=== PATIENT | female | born 1970 | race Caucasian/White ===

== ENCOUNTER → 2016-07-09 | Outpatient (REF) | payer OTHER ==
[~2016-07-09] MED LIST: /ADVA50050 INH; /CELE20CA OR; /DULO30CA; /DULO30CA PO; /ESOM40CA; /ESOM40CA OR; /MELO7TA PO; /MOXI40TA OR; /PANT40TA PO; ABIL10TA; ABIL20TA2; ABIL5TAB OR; ASPI325T; ASPI325T OR; BACL10TA2 OR; CEPACOL PO; CLAR5CHW; CLAR5CHW OR; CLAR5CHW PO; COMBIN INH; COMBVENT; COMBVENT INH; DICY10CA2 PO; FIBERCON PO; HYDR10TA3; HYDR50TA8; HYDR50TA8 OR; HYDROCODONE/APAP PO; IBUP600T OR; IMMODIUM; IMMODIUM OR; INVAGA PO; LYRI75CA; MINI5CAP PO; NEBUMIS2; NIAS10003; NIAS500T2; NIAS500T2 OR; OXYB10TA OR; OXYB15TA OR; OXYB5TAB; OXYB5TAB4 OR; PEPC20TA2 PO; PRED10TA2 OR; PRED20TA OR; PREG100CA; PREG100CA PO; PROZ10CA OR; QUET20XRTB; QUET20XRTB OR; QUET30XR PO; RESPERIDONE PO; SIMV20TA2; SIMV20TA2 OR; SIMV20TA2 PO; SING4GRA PO; VENTAER INH; VICO5TAB; VICO5TAB OR; XOPENEX; XOPENEX OR; ZOCO5TAB; ZOCO5TAB PO; ZYRT10CA PO; [UNRECOGNIZED DRUG - OTHER]; vitamin D; vitamin D3 PO
[2016-07-10 12:09] LABS: BASO % 0.5 % (0.0-1.0); EOS # 0.2 K/mm3 (0.0-0.50); EOS % 2.5 % (0.0-3.0); LARGE UNSTAINED CELL # 0.1 K/mm3 (0.0-0.4); LARGE UNSTAINED CELL % 1.6 % (0.0-4.0); LYMPH # 2.5 K/mm3 (1.5-4.5); LYMPH % 29.8 % (24.0-44.0); MEAN CORPUSCULAR HEMOGLOBIN 34.1 pg (27.0-33.0); MEAN CORPUSCULAR HGB CONC 35.5 g/dl (32.0-36.5); MEAN CORPUSCULAR VOLUME 95.8 fl (80.0-96.0); MONO # 0.5 K/mm3 (0.0-0.8); NEUTROPHILS % 59.5 % (36.0-66.0); PLATELET COUNT, AUTOMATED 309 k/mm3 (150-450); RED CELL DISTRIBUTION WIDTH 12.3 % (11.5-14.5); WHITE BLOOD COUNT 8.4 K/mm3 (4.0-10.0)
[2016-07-10 12:17] LABS: ALBUMIN 4.1 GM/DL (3.2-5.2); ALBUMIN/GLOBULIN RATIO 1.32 (1.00-1.93); ALKALINE PHOSPHATASE 168 U/L (45-117); ALT/SGPT 14 U/L (12-78); ANION GAP 12 MEQ/L (8-16); AST/SGOT 13 U/L (15-37); BILIRUBIN,TOTAL 0.9 MG/DL (0.2-1.0); BLOOD UREA NITROGEN 12 MG/DL (7-18); CALCIUM LEVEL 10.1 MG/DL (8.5-10.1); CARBON DIOXIDE LEVEL 25 MEQ/L (21-32); CHLORIDE LEVEL 104 MEQ/L (98-107); CHOLESTEROL LEVEL 229 MG/DL (<200); CREATININE FOR GFR 0.66 MG/DL (0.55-1.02); GLOMERULAR FILTRATION RATE > 60.0 (>58); GLUCOSE, FASTING 75 MG/DL (70-105); MAGNESIUM LEVEL 1.8 MG/DL (1.8-2.4); POTASSIUM SERUM 3.1 MEQ/L (3.5-5.1); SODIUM LEVEL 141 MEQ/L (136-145); THYROXINE (T4) 10.2 UG/DL (4.5-12.0); TOTAL PROTEIN 7.2 GM/DL (6.4-8.2); TRIGLYCERIDES LEVEL 158 MG/DL (<150)
[2016-07-10 12:31] LABS: FOLATE 7.6 NG/ML (>5.4); VITAMIN B12 LEVEL 629 PG/ML (247-911)
[2016-07-10 12:41] LABS: ERYTHROCYTE SEDIMENTATION RATE 6 mm/hr (0-20)
== END ==
LOC: M SFHCCLAY 15:44
PROVIDERS: ATTEND Family Medicine
DX: E78.5 Hyperlipidemia, unspecified (principal); R63.4 Abnormal weight loss; R22.9 Localized swelling, mass and lump, unspecified; R73.01 Impaired fasting glucose

== ENCOUNTER → 2016-08-30 | Outpatient (CLI) | payer OTHER ==
--- NOTE | 2016-08-30 14:54 | REP ---
STERNUM: Two views of the sternum are performed. I see no evidence of acute fracture or dislocation. There is no evidence of intrinsic osseous pathology. IMPRESSION: Essentially negative exam of the sternum. Signed by Domingo Early MD 08/30/2016 03:57 P
--- NOTE | 2016-08-30 14:54 | REP ---
CHEST, TWO VIEWS: There is no evidence of acute infiltrate. No pleural effusion is seen. The heart is normal in size. The mediastinal silhouette is unremarkable. The visualized osseous structures are intact. There are mild degenerative changes of the spine. IMPRESSION: No acute pulmonary disease. Signed by Domingo Early MD 08/30/2016 03:57 P
== END ==
LOC: M RAD 11:09
PROVIDERS: ATTEND Family Medicine
DX: R07.89 Other chest pain (principal); J44.9 Chronic obstructive pulmonary disease, unspecified

== ENCOUNTER → 2016-10-03 | Outpatient (REF) | payer OTHER | LOC: M LAB REF 16:16 | PROVIDERS: ATTEND Physician Assistant | DX: N39.0 Urinary tract infection, site not specified (principal) ==

== ENCOUNTER → 2016-10-11 | Outpatient (CLI) | payer OTHER ==
--- NOTE | 2016-10-11 23:11 | REP ---
RIGHT HIP: Two views of the right hip are performed. There is no acute fracture or dislocation. There is mild joint space narrowing, subchondral sclerosis and spurring at the hip joint. IMPRESSION: Mild degenerative changes. No fracture or dislocation. Signed by Domingo Early MD 10/12/2016 03:22 P
--- NOTE | 2016-10-11 23:11 | REP ---
LEFT RIB SERIES: Four views of the left ribs are performed and demonstrate no fracture, dislocation or intrinsic bone disease. IMPRESSION: No evidence of left rib fracture. Signed by Domingo Early MD 10/12/2016 03:22 P
== END ==
LOC: M RAD 18:58
PROVIDERS: ATTEND Family Medicine
DX: S70.01XA Contusion of right hip, initial encounter (principal); R07.81 Pleurodynia; M16.11 Unilateral primary osteoarthritis, right hip; X58.XXXA Exposure to other specified factors, initial encounter; Y93.9 Activity, unspecified; Y92.9 Unspecified place or not applicable; Y99.8 Other external cause status

== ENCOUNTER → 2017-03-08 | Outpatient (CLI) | payer OTHER ==
--- NOTE | 2017-03-08 15:32 | REP ---
Clinical: Cough and left-sided pain . Comparison: 10/11/2016 . Technique: PA and lateral. Findings: The mediastinum and cardiac silhouette are normal. The lung cesar are clear and without acute consolidation, effusion, or pneumothorax. The skeletal structures are intact and normal. Impression: 1. No acute cardiopulmonary process. Signed by Michael Hoffman MD 03/08/2017 03:24 P
[2017-03-08 17:25] LABS: ALBUMIN/GLOBULIN RATIO 1.18 (1.00-1.93); ALKALINE PHOSPHATASE 157 U/L (45-117); ALT/SGPT 21 U/L (12-78); ANION GAP 5 MEQ/L (8-16); AST/SGOT 18 U/L (15-37); BILIRUBIN,TOTAL 0.5 MG/DL (0.2-1.0); BLOOD UREA NITROGEN 14 MG/DL (7-18); CALCIUM LEVEL 9.7 MG/DL (8.5-10.1); CARBON DIOXIDE LEVEL 31 MEQ/L (21-32); CHLORIDE LEVEL 105 MEQ/L (98-107); CHOLESTEROL LEVEL 200 MG/DL (<200); CREATININE FOR GFR 0.62 MG/DL (0.55-1.02); GLOMERULAR FILTRATION RATE > 60.0 (>58); GLUCOSE, FASTING 55 MG/DL (70-105); POTASSIUM SERUM 3.4 MEQ/L (3.5-5.1); SODIUM LEVEL 141 MEQ/L (136-145); TOTAL PROTEIN 7.4 GM/DL (6.4-8.2); TRIGLYCERIDES LEVEL 153 MG/DL (<150)
== END ==
LOC: M WUC 15:13
PROVIDERS: ATTEND Family Medicine
DX: J44.9 Chronic obstructive pulmonary disease, unspecified (principal); R73.01 Impaired fasting glucose; E78.5 Hyperlipidemia, unspecified

== ENCOUNTER → 2017-09-03 | Outpatient (REF) | payer OTHER ==
[2017-09-03 12:35] LABS: VITAMIN B12 LEVEL 460 PG/ML
[2017-09-03 12:36] LABS: FOLATE 8.4 NG/ML
[2017-09-06 00:07] LABS: LAMOTRIGINE (LAMICTAL) 3.7 ug/mL (2.0-20.0)
== END ==
LOC: M LABDRAWC 11:28
DX: Z79.899 Other long term (current) drug therapy (principal)

== ENCOUNTER → 2017-09-03 | Outpatient (REF) | payer OTHER ==
[2017-09-03 11:49] LABS: BASO # 0.1 10^3/uL (0.0-0.2); BASO % 1.5 % (0.0-1.0); EOS # 0.5 10^3/uL (0.0-0.50); EOS % 8.3 % (0.0-3.0); HEMATOCRIT 45.4 % (36.0-47.0); HEMOGLOBIN 14.8 g/dl (12.0-16.0); IMMATURE GRANULOCYTE % 0.2 % (0-3.0); LYMPH # 2.4 10^3/uL (1.5-4.5); MEAN CORPUSCULAR HEMOGLOBIN 31.5 pg (27.0-33.0); MEAN CORPUSCULAR HGB CONC 32.6 g/dl (32.0-36.5); MEAN CORPUSCULAR VOLUME 96.6 fl (80.0-96.0); MONO # 0.5 10^3/uL (0.0-0.8); MONO % 8.2 % (0.0-5.0); NEUTROPHILS # 2.1 10^3/uL (1.8-7.7); NEUTROPHILS % 38.8 % (36.0-66.0); PLATELET COUNT, AUTOMATED 336 10^3/uL (150-450); RED CELL DISTRIBUTION WIDTH 12.8 % (11.5-14.5); WHITE BLOOD COUNT 5.5 10^3/uL (4.0-10.0)
[2017-09-03 12:23] LABS: ALBUMIN 4.1 GM/DL (3.2-5.2); ALBUMIN/GLOBULIN RATIO 1.24 (1.00-1.93); ALKALINE PHOSPHATASE 197 U/L (45-117); ALT/SGPT 26 U/L (12-78); ANION GAP 7 MEQ/L (8-16); AST/SGOT 20 U/L (7-37); BILIRUBIN,TOTAL 0.6 MG/DL (0.2-1.0); BLOOD UREA NITROGEN 14 MG/DL (7-18); CALCIUM LEVEL 9.5 MG/DL (8.5-10.1); CARBON DIOXIDE LEVEL 28 MEQ/L (21-32); CHLORIDE LEVEL 107 MEQ/L (98-107); CREATININE FOR GFR 0.54 MG/DL (0.55-1.30); GLOMERULAR FILTRATION RATE > 60.0 (>58); GLUCOSE, FASTING 62 MG/DL (70-100); POTASSIUM SERUM 3.7 MEQ/L (3.5-5.1); SODIUM LEVEL 142 MEQ/L (136-145); TOTAL PROTEIN 7.4 GM/DL (6.4-8.2)
== END ==
LOC: M SFHCCLAY 09:10
DX: E78.5 Hyperlipidemia, unspecified (principal); J44.9 Chronic obstructive pulmonary disease, unspecified

== ENCOUNTER → 2017-10-01 | Outpatient (CLI) | payer OTHER | LOC: M CLY 13:42 | DX: M25.78 Osteophyte, vertebrae (principal); M50.822 Other cervical disc disorders at C5-C6 level; M50.322 Other cervical disc degeneration at C5-C6 level; M50.81 Other cervical disc disorders, high cervical region; M25.711 Osteophyte, right shoulder; M25.511 Pain in right shoulder; M54.12 Radiculopathy, cervical region | CPT/HCPCS: 72050 ==

== ENCOUNTER → 2017-10-28 | Outpatient (REF) | payer OTHER | LOC: M LAB REF 17:46 | DX: N39.0 Urinary tract infection, site not specified (principal) | CPT/HCPCS: 87186 ==

== ENCOUNTER → 2018-01-15 | Outpatient (REF) | payer OTHER ==
[2018-01-15 15:08] LABS: CHLAMYDIA DNA AMPLIFICATION NEGATIVE (NEGATIVE); GC DNA AMPLIFICATION NEGATIVE (NEGATIVE)
== END ==
LOC: M LAB REF 13:09
DX: Z11.3 Encounter for screening for infections with a predominantly sexual mode of transmission (principal)
CPT/HCPCS: 87591

== ENCOUNTER → 2018-04-28 | Outpatient (CLI) | payer OTHER | LOC: M CLY 15:22 | DX: M54.6 Pain in thoracic spine (principal) | CPT/HCPCS: 72072 ==

== ENCOUNTER 2018-05-07 10:25 | Outpatient (RCR) | payer OTHER | END 2018-05-30 | LOC: M PT 10:25 | DX: M54.6 Pain in thoracic spine (principal); M25.511 Pain in right shoulder | CPT/HCPCS: 97010 ==

== ENCOUNTER 2018-05-21 05:21 | Emergency (ER) | payer OTHER ==
[2018-05-21] MEDS ORDERED: ONDANSETRON 4MG/2ML VIAL (J2405) As Ordered (05:54)
[2018-05-21] MEDS: ONDANSETRON 4MG/2ML VIAL (J2405) IV (06:00)
[2018-05-21] MEDS: NS 1,000 ML IV (06:00)
[2018-05-21 06:23] LABS: BASO # 0.1 10^3/uL (0.0-0.2); BASO % 0.5 % (0.0-1.0); EOS # 0.2 10^3/uL (0.0-0.50); EOS % 1.6 % (0.0-3.0); HEMATOCRIT 46.9 % (36.0-47.0); IMMATURE GRANULOCYTE % 0.4 % (0-3.0); LYMPH # 1.9 10^3/uL (1.5-4.5); LYMPH % 17.1 % (24.0-44.0); MEAN CORPUSCULAR HEMOGLOBIN 31.8 pg (27.0-33.0); MEAN CORPUSCULAR HGB CONC 34.1 g/dl (32.0-36.5); MEAN CORPUSCULAR VOLUME 93.2 fl (80.0-96.0); MONO # 0.5 10^3/uL (0.0-0.8); MONO % 4.8 % (0.0-5.0); NEUTROPHILS # 8.3 10^3/uL (1.8-7.7); NEUTROPHILS % 75.6 % (36.0-66.0); PLATELET COUNT, AUTOMATED 345 10^3/uL (150-450); RED BLOOD COUNT 5.03 10^6/uL (4.00-5.40); RED CELL DISTRIBUTION WIDTH 12.5 % (11.5-14.5)
[2018-05-21] MEDS: METOCLOPRAMIDE INJ 10MG/2ML VIAL (J2765) IV (07:30)
[2018-05-21 08:08] LABS: ANION GAP 5 MEQ/L (8-16); BLOOD UREA NITROGEN 12 MG/DL (7-18); CALCIUM LEVEL 9.1 MG/DL (8.5-10.1); CARBON DIOXIDE LEVEL 28 MEQ/L (21-32); CHLORIDE LEVEL 109 MEQ/L (98-107); CREATININE FOR GFR 0.63 MG/DL (0.55-1.30); GLOMERULAR FILTRATION RATE > 60.0 (>58); GLUCOSE, FASTING 148 MG/DL (70-100); POTASSIUM SERUM 3.7 MEQ/L (3.5-5.1); SODIUM LEVEL 142 MEQ/L (136-145)
[2018-05-21] MEDS: DICYCLOMINE INJ 20MG/2ML (J0500) IM (09:15)
== END 2018-05-21 10:10 | disposition home or self-care (01) ==
LOC: M ED 05:21
DX: T62.91XA Toxic effect of unspecified noxious substance eaten as food, accidental (unintentional), initial encounter (principal); Y92.9 Unspecified place or not applicable; Y93.9 Activity, unspecified; R11.2 Nausea with vomiting, unspecified; R19.7 Diarrhea, unspecified; G43.909 Migraine, unspecified, not intractable, without status migrainosus; E78.00 Pure hypercholesterolemia, unspecified; J45.909 Unspecified asthma, uncomplicated; J44.9 Chronic obstructive pulmonary disease, unspecified; Z87.01 Personal history of pneumonia (recurrent); K21.9 Gastro-esophageal reflux disease without esophagitis; Z87.440 Personal history of urinary (tract) infections; M51.9 Unspecified thoracic, thoracolumbar and lumbosacral intervertebral disc disorder; F41.9 Anxiety disorder, unspecified; F32.9 Major depressive disorder, single episode, unspecified; Z79.899 Other long term (current) drug therapy; Z88.8 Allergy status to other drugs, medicaments and biological substances
CPT/HCPCS: J0500

== ENCOUNTER 2018-05-21 18:59 | Observation (INO) | payer OTHER ==
[2018-05-21 20:07] LABS: BASO % 0.2 % (0.0-1.0); EOS % 0.1 % (0.0-3.0); HEMATOCRIT 42.6 % (36.0-47.0); HEMOGLOBIN 14.7 g/dl (12.0-15.5); IMMATURE GRANULOCYTE % 0.9 % (0-3.0); LYMPH % 7.7 % (24.0-44.0); MEAN CORPUSCULAR HGB CONC 34.5 g/dl (32.0-36.5); MEAN CORPUSCULAR VOLUME 92.6 fl (80.0-96.0); NEUTROPHILS # 20.5 10^3/uL (1.8-7.7); NEUTROPHILS % 80.1 % (36.0-66.0); PLATELET COUNT, AUTOMATED 326 10^3/uL (150-450); RED CELL DISTRIBUTION WIDTH 12.2 % (11.5-14.5); WHITE BLOOD COUNT 25.6 10^3/uL (4.0-10.0)
[2018-05-21] MEDS: MORPHINE 4 MG/ML 1ML VIAL/SYRINGE (J2270) IV ×2 (20:17→23:01)
[2018-05-21] MEDS: NS 1,000 ML IV ×2 (20:17→23:50)
[2018-05-21] MEDS: ONDANSETRON 4MG/2ML VIAL (J2405) IV (20:17)
[2018-05-21] MEDS: GASTROGRAFIN SOLUTION 30ML PO ×2 (20:17→21:21)
[2018-05-21 20:25] LABS: CONTROL LINE HCG INT CTR LINE PRESENT; HCG, SERUM QUALITATIVE NEGATIVE (NEGATIVE)
[2018-05-21 20:34] LABS: ALBUMIN 3.8 GM/DL (3.2-5.2); ALBUMIN/GLOBULIN RATIO 1.15 (1.00-1.93); ALKALINE PHOSPHATASE 165 U/L (45-117); ALT/SGPT 27 U/L (12-78); ANION GAP 5 MEQ/L (8-16); AST/SGOT 32 U/L (7-37); BILIRUBIN,DIRECT 0.2 MG/DL (0.0-0.2); BILIRUBIN,TOTAL 0.8 MG/DL (0.2-1.0); BLOOD UREA NITROGEN 8 MG/DL (7-18); CALCIUM LEVEL 9.5 MG/DL (8.5-10.1); CARBON DIOXIDE LEVEL 28 MEQ/L (21-32); CHLORIDE LEVEL 107 MEQ/L (98-107); GLOMERULAR FILTRATION RATE > 60.0 (>58); GLUCOSE, FASTING 114 MG/DL (70-100); LIPASE 57 U/L (73-393); POTASSIUM SERUM 4.1 MEQ/L (3.5-5.1); SODIUM LEVEL 140 MEQ/L (136-145); TOTAL PROTEIN 7.1 GM/DL (6.4-8.2)
[2018-05-21 20:45] LABS: MONO # 2.8 10^3/uL (0.0-0.8); POSITIVE DIFF POS FLAG
[2018-05-21 20:50] LABS: KETONE, URINE AUTO RFX NEGATIVE (NEGATIVE); NITRITE, URINE AUTO RFX NEGATIVE (NEGATIVE); RBC, URINE AUTO RFX 1 /HPF (0-3); SPECIFIC GRAVITY UR AUTO RFX 1.009 (1.002-1.035); SQUAM EPITHELIAL CELL UR AURFX 1 /HPF (0-6); WBC, URINE AUTO RFX 2 /HPF (0-3)
[2018-05-21 20:52] LABS: LEUKOCYTE ESTERASE UR AUTO RFX TRACE (NEGATIVE)
[2018-05-21] MEDS ORDERED: ISOVUE-370 76% 100ML VIAL (Q9967) As Ordered (21:41)
[2018-05-21] MEDS: PIPERACILLIN/TAZOBACTAM SOD 4.5 GM in D5W MINI-BAG PLUS 50 ML IV (23:50)
[2018-05-22] MEDS: BUPIVACAINE HCL 0.25% 30 ML VIAL As Ordered (00:18)
[2018-05-22] MEDS ORDERED: fentaNYL 100 MCG/2 ML INJECTION (J3010) As Ordered ×3 (01:09→01:52)
[2018-05-22] MEDS ORDERED: PROPOFOL 200 MG/20 ML VIAL As Ordered (01:09)
[2018-05-22] MEDS ORDERED: ROCURONIUM BROMIDE 50 MG/5 ML VIAL As Ordered (01:09)
[2018-05-22] MEDS ORDERED: LIDOCAINE 2% INJ 100 MG/5 ML SDV (FOR ANES.) As Ordered (01:09)
[2018-05-22] MEDS ORDERED: NEOSTIGMINE 10 MG/10 ML VIAL (J2710) As Ordered (01:09)
[2018-05-22] MEDS ORDERED: MIDAZOLAM INJ 2 MG/2 ML VIAL (J2250) As Ordered (01:09)
[2018-05-22] MEDS ORDERED: dexameTHASONE 4 MG/ML 1ML VIAL (J1100) As Ordered (01:09)
[2018-05-22] MEDS ORDERED: GLYCOPYRROLATE INJ 0.2 MG/ML 2 ML VIAL As Ordered (01:09)
[2018-05-22] MEDS ORDERED: ONDANSETRON 4MG/2ML VIAL (J2405) As Ordered (01:09)
[2018-05-22] MEDS ORDERED: METOCLOPRAMIDE INJ 10MG/2ML VIAL (J2765) As Ordered (01:09)
[2018-05-22] MEDS ORDERED: KETOROLAC 60 MG/2 ML VIAL (J1885) As Ordered (01:09)
[2018-05-22] MEDS: IPRATROPIUM 0.5MG/ALBUTEROL 2.5MG INH SOL UD 3ML (DUONEB)(J7620) NEB ×4 (01:30→20:23)
[2018-05-22] MEDS ORDERED: D5W/LR 1,000 ML IV (01:44)
[2018-05-22] MEDS ORDERED: ONDANSETRON 4MG/2ML VIAL (J2405) IV ×2 (01:45→02:00)
[2018-05-22] MEDS ORDERED: ACETAMINOPHEN TAB 650MG DOSE (2X325MG) PO (01:45)
[2018-05-22] MEDS ORDERED: IPRATROPIUM 0.5MG/ALBUTEROL 2.5MG INH SOL UD 3ML (DUONEB)(J7620) NEB (01:45)
[2018-05-22] MEDS ORDERED: METOCLOPRAMIDE INJ 10MG/2ML VIAL (J2765) IV (01:45)
[2018-05-22] MEDS ORDERED: MORPHINE 4 MG/ML 1ML VIAL/SYRINGE (J2270) IV (01:45)
[2018-05-22] MEDS ORDERED: PROMETHAZINE INJ 25 MG/ML VIAL (J2550) IV (01:45)
[2018-05-22] MEDS: BUPIVACAINE/EPIN 0.25% 30 ML VIAL As Ordered (01:46)
[2018-05-22] MEDS: fentaNYL 100 MCG/2 ML INJECTION (J3010) IV ×3 (01:55→02:20)
[2018-05-22] MEDS ORDERED: PERCOCET 5MG/325MG TAB PO (02:00)
[2018-05-22] MEDS: LR 1,000 ML IV (02:00)
[2018-05-22] MEDS: NS 1,000 ML IV ×2 (03:29→10:15)
[2018-05-22] MEDS: PIPERACILLIN/TAZOBACTAM SOD 3.375 GM in D5W MINI-BAG PLUS 50 ML IV (05:35)
[2018-05-22] MEDS: KETOROLAC 30 MG/ML VIAL (J1885) IV ×3 (05:41→22:27)
[2018-05-22] MEDS: DICYCLOMINE 10 MG CAP PO ×4 (10:14→22:26)
[2018-05-22] MEDS: lamoTRIgine 100MG TAB PO (10:14)
[2018-05-22] MEDS: oxyBUTYnin *DITROPAN XL* 5 MG TABCR PO (10:14)
[2018-05-22] MEDS: PANTOPRAZOLE 40MG TAB (PROTONIX) PO (10:14)
[2018-05-22] MEDS: TOPIRAMATE (TopAMAX) 100 MG TAB PO ×2 (10:15→22:27)
[2018-05-22] MEDS: NORCO, ANEXSIA 5/325MG TABLET (HYDROcodone/ACETAMINOPHEN) PO ×2 (10:19→17:22)
[2018-05-23] MEDS: NORCO, ANEXSIA 5/325MG TABLET (HYDROcodone/ACETAMINOPHEN) PO ×4 (01:05→17:42)
[2018-05-23] MEDS: IPRATROPIUM 0.5MG/ALBUTEROL 2.5MG INH SOL UD 3ML (DUONEB)(J7620) NEB ×4 (01:18→19:57)
[2018-05-23 06:37] LABS: BASO % 0.2 % (0.0-1.0); EOS # 0.1 10^3/uL (0.0-0.50); EOS % 1.6 % (0.0-3.0); HEMATOCRIT 32.9 % (36.0-47.0); IMMATURE GRANULOCYTE % 0.3 % (0-3.0); LYMPH # 3.2 10^3/uL (1.5-4.5); LYMPH % 36.6 % (24.0-44.0); MEAN CORPUSCULAR HEMOGLOBIN 31.6 pg (27.0-33.0); MEAN CORPUSCULAR HGB CONC 33.4 g/dl (32.0-36.5); MEAN CORPUSCULAR VOLUME 94.5 fl (80.0-96.0); MONO # 0.7 10^3/uL (0.0-0.8); MONO % 7.7 % (0.0-5.0); NEUTROPHILS # 4.7 10^3/uL (1.8-7.7); NEUTROPHILS % 53.6 % (36.0-66.0); PLATELET COUNT, AUTOMATED 211 10^3/uL (150-450); RED BLOOD COUNT 3.48 10^6/uL (4.00-5.40); RED CELL DISTRIBUTION WIDTH 12.5 % (11.5-14.5); WHITE BLOOD COUNT 8.7 10^3/uL (4.0-10.0)
[2018-05-23] MEDS: TOPIRAMATE (TopAMAX) 100 MG TAB PO ×2 (09:43→21:14)
[2018-05-23] MEDS: lamoTRIgine 100MG TAB PO (09:43)
[2018-05-23] MEDS: PANTOPRAZOLE 40MG TAB (PROTONIX) PO (09:43)
[2018-05-23] MEDS: oxyBUTYnin *DITROPAN XL* 5 MG TABCR PO (09:43)
[2018-05-23] MEDS: DICYCLOMINE 10 MG CAP PO ×4 (09:44→21:14)
[2018-05-23] MEDS: GASTROGRAFIN SOLUTION 30ML PO ×2 (14:38→15:24)
[2018-05-23] MEDS: PERCOCET 5MG/325MG TAB PO (22:50)
[2018-05-24] MEDS: IPRATROPIUM 0.5MG/ALBUTEROL 2.5MG INH SOL UD 3ML (DUONEB)(J7620) NEB ×4 (03:05→20:00)
[2018-05-24] MEDS: MORPHINE 4 MG/ML 1ML VIAL/SYRINGE (J2270) IV ×3 (04:09→21:16)
[2018-05-24 06:57] LABS: BASO % 0.6 % (0.0-1.0); EOS # 0.2 10^3/uL (0.0-0.50); EOS % 3.6 % (0.0-3.0); HEMATOCRIT 32.7 % (36.0-47.0); IMMATURE GRANULOCYTE % 0.4 % (0-3.0); LYMPH # 2.9 10^3/uL (1.5-4.5); LYMPH % 43.5 % (24.0-44.0); MEAN CORPUSCULAR HEMOGLOBIN 31.9 pg (27.0-33.0); MEAN CORPUSCULAR HGB CONC 33.6 g/dl (32.0-36.5); MEAN CORPUSCULAR VOLUME 94.8 fl (80.0-96.0); MONO # 0.7 10^3/uL (0.0-0.8); MONO % 10.8 % (0.0-5.0); NEUTROPHILS # 2.7 10^3/uL (1.8-7.7); NEUTROPHILS % 41.1 % (36.0-66.0); PLATELET COUNT, AUTOMATED 227 10^3/uL (150-450); RED BLOOD COUNT 3.45 10^6/uL (4.00-5.40); RED CELL DISTRIBUTION WIDTH 12.8 % (11.5-14.5); WHITE BLOOD COUNT 6.7 10^3/uL (4.0-10.0)
[2018-05-24 07:35] LABS: ALBUMIN 2.8 GM/DL (3.2-5.2); ALBUMIN/GLOBULIN RATIO 0.85 (1.00-1.93); ALKALINE PHOSPHATASE 150 U/L (45-117); ALT/SGPT 39 U/L (12-78); ANION GAP 7 MEQ/L (8-16); AST/SGOT 38 U/L (7-37); BILIRUBIN,TOTAL 0.3 MG/DL (0.2-1.0); BLOOD UREA NITROGEN 6 MG/DL (7-18); C REACTIVE PROTEIN QUANTITATIV 6.91 MG/DL (0.00-0.30); CARBON DIOXIDE LEVEL 28 MEQ/L (21-32); CHLORIDE LEVEL 108 MEQ/L (98-107); CREATININE FOR GFR 0.52 MG/DL (0.55-1.30); GLOMERULAR FILTRATION RATE > 60.0 (>58); GLUCOSE, FASTING 93 MG/DL (70-100); POTASSIUM SERUM 2.7 MEQ/L (3.5-5.1); SODIUM LEVEL 143 MEQ/L (136-145); TOTAL PROTEIN 6.1 GM/DL (6.4-8.2)
[2018-05-24] MEDS: DICYCLOMINE 10 MG CAP PO ×4 (08:31→21:15)
[2018-05-24] MEDS: oxyBUTYnin *DITROPAN XL* 5 MG TABCR PO (08:31)
[2018-05-24] MEDS: lamoTRIgine 100MG TAB PO (08:31)
[2018-05-24] MEDS: TOPIRAMATE (TopAMAX) 100 MG TAB PO ×2 (08:31→21:15)
[2018-05-24] MEDS: PANTOPRAZOLE 40MG TAB (PROTONIX) PO (08:32)
[2018-05-24] MEDS: PERCOCET 5MG/325MG TAB PO ×2 (09:34→16:26)
[2018-05-24] MEDS: POTASSIUM CHLORIDE 10 MEQ SR TABLET PO ×2 (10:48→13:28)
[2018-05-25] MEDS: IPRATROPIUM 0.5MG/ALBUTEROL 2.5MG INH SOL UD 3ML (DUONEB)(J7620) NEB ×4 (04:37→20:23)
[2018-05-25] MEDS: PERCOCET 5MG/325MG TAB PO ×2 (06:12→23:55)
[2018-05-25 09:44] LABS: ANION GAP 5 MEQ/L (8-16); BLOOD UREA NITROGEN 3 MG/DL (7-18); CALCIUM LEVEL 9.2 MG/DL (8.5-10.1); CARBON DIOXIDE LEVEL 29 MEQ/L (21-32); CHLORIDE LEVEL 108 MEQ/L (98-107); CREATININE FOR GFR 0.55 MG/DL (0.55-1.30); GLOMERULAR FILTRATION RATE > 60.0 (>58); GLUCOSE, FASTING 80 MG/DL (70-100); POTASSIUM SERUM 3.4 MEQ/L (3.5-5.1); SODIUM LEVEL 142 MEQ/L (136-145)
[2018-05-25] MEDS: DICYCLOMINE 10 MG CAP PO ×4 (09:49→21:02)
[2018-05-25] MEDS: lamoTRIgine 100MG TAB PO (09:49)
[2018-05-25] MEDS: PANTOPRAZOLE 40MG TAB (PROTONIX) PO (09:49)
[2018-05-25] MEDS: oxyBUTYnin *DITROPAN XL* 5 MG TABCR PO (09:50)
[2018-05-25] MEDS: TOPIRAMATE (TopAMAX) 100 MG TAB PO ×2 (09:50→21:02)
[2018-05-25] MEDS: MORPHINE 4 MG/ML 1ML VIAL/SYRINGE (J2270) IV ×3 (10:33→21:29)
[2018-05-25] MEDS: NORCO, ANEXSIA 5/325MG TABLET (HYDROcodone/ACETAMINOPHEN) PO ×2 (13:27→17:55)
[2018-05-26] MEDS: IPRATROPIUM 0.5MG/ALBUTEROL 2.5MG INH SOL UD 3ML (DUONEB)(J7620) NEB ×2 (01:43→07:30)
[2018-05-26] MEDS: PERCOCET 5MG/325MG TAB PO ×3 (03:59→11:13)
[2018-05-26] MEDS: LORazepam 0.5 MG TAB PO (08:15)
[2018-05-26] MEDS: TOPIRAMATE (TopAMAX) 100 MG TAB PO (08:15)
[2018-05-26] MEDS: lamoTRIgine 100MG TAB PO (08:15)
[2018-05-26] MEDS: PANTOPRAZOLE 40MG TAB (PROTONIX) PO (08:15)
[2018-05-26] MEDS: DICYCLOMINE 10 MG CAP PO ×2 (08:15→13:21)
[2018-05-26] MEDS: oxyBUTYnin *DITROPAN XL* 5 MG TABCR PO (08:15)
[2018-05-26] MEDS: MORPHINE 4 MG/ML 1ML VIAL/SYRINGE (J2270) IV (09:10)
[2018-05-26] MEDS: NORCO, ANEXSIA 5/325MG TABLET (HYDROcodone/ACETAMINOPHEN) PO (11:20)
== END 2018-05-26 14:15 | disposition home health service (06) ==
LOC: M SDC 05-22 00:21 → M ED INP 05-22 01:44 → M ED 18:59 → M MS5PR 05-22 02:48
DX: K35.890 Other acute appendicitis without perforation or gangrene (principal); M51.36 Other intervertebral disc degeneration, lumbar region
CPT/HCPCS: 44970

== ENCOUNTER 2018-06-26 12:15 | Outpatient (RCR) | payer OTHER ==
[~2018-06-26 12:15] MED LIST changes: +ATIV1TAB10 PO; +BREO1INH; +CELE1CAP88 PO; +DICY10CA13 PO; +HYDR-3719 PO; +LAMO200T2 PO; +OXYB10TA PO; +PANT40TA3 PO; +PERCOCET PO; +TAB-TAB PO; +TOPI100T9 PO; +ZOFR4TAB14 PO
== END 2018-06-30 ==
LOC: M PT 12:15
PROVIDERS: ATTEND Family Medicine
DX: M54.6 Pain in thoracic spine (principal); M25.511 Pain in right shoulder

== ENCOUNTER → 2018-07-14 | Outpatient (CLI) | payer OTHER ==
--- NOTE | 2018-07-15 02:47 | REP ---
Clinical: Cough . Comparison: 03/08/2017 . Technique: PA and lateral. Findings: The mediastinum and cardiac silhouette are normal. The lung cesar are clear and without acute consolidation, effusion, or pneumothorax. The skeletal structures are intact and normal. Impression: 1. No acute cardiopulmonary process.
== END ==
LOC: M CLY 11:57
PROVIDERS: ATTEND Family Medicine
DX: R05 Cough (principal)

== ENCOUNTER → 2018-07-31 | Outpatient (RCR) | payer OTHER | LOC: M PT 07-08 10:02 | PROVIDERS: ATTEND Family Medicine | DX: M54.6 Pain in thoracic spine (principal); M25.511 Pain in right shoulder ==

== ENCOUNTER 2018-09-25 16:41 | Emergency (ER) | payer OTHER ==
[~2018-09-25] VITALS: Ht 154.9 cm; Wt 77.2 kg
[~2018-09-25 16:41] MED LIST changes: -/ADVA50050 INH; -/CELE20CA OR; -/DULO30CA; -/DULO30CA PO; -/ESOM40CA; -/ESOM40CA OR; -/MELO7TA PO; -/MOXI40TA OR; -/PANT40TA PO; +ADVA1AER2 INH; +AVEL1TAB2 OR; +CELE1CAP4 OR; +CYMB1CAP5; +CYMB1CAP5 PO; +MOBI4TAB PO; +NEXI1CAP3; +NEXI1CAP3 OR; +PROT1TAB2 PO; -QUET20XRTB; -QUET20XRTB OR; -QUET30XR PO; +SERO200T43; +SERO200T43 OR; +SERO300T20 PO
[2018-09-25] MEDS ORDERED: NS 500 ML IV ONE (19:00)
[2018-09-25] MEDS ORDERED: ONDANSETRON 4MG/2ML VIAL (J2405) IV ONE (19:00)
[2018-09-25] MEDS ORDERED: diphenhydrAMINE INJ 50MG/ML VIAL (J1200) IV ONE (19:00)
[2018-09-25] MEDS ORDERED: KETOROLAC 30 MG/ML VIAL (J1885) IV ONE (19:00)
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
[2018-09-25] MEDS ORDERED: NITROFURANTOIN (MACROBID) 100 MG CAP PO ONE (21:00)
[2018-09-25] MEDS ORDERED: MACR100C43 PO (21:00)
[2018-09-25 21:30] VITALS: BP 99/57
== END 2018-09-25 21:35 | disposition home or self-care (01) ==
LOC: M ED 16:41
DX: Z04.1 Encounter for examination and observation following transport accident (principal); S06.0X0A Concussion without loss of consciousness, initial encounter; V49.50XA Passenger injured in collision with unspecified motor vehicles in traffic accident, initial encounter; Y92.89 Other specified places as the place of occurrence of the external cause; M79.604 Pain in right leg; N39.0 Urinary tract infection, site not specified; J44.9 Chronic obstructive pulmonary disease, unspecified; J45.909 Unspecified asthma, uncomplicated; K21.9 Gastro-esophageal reflux disease without esophagitis; F33.9 Major depressive disorder, recurrent, unspecified; F41.9 Anxiety disorder, unspecified; F17.200 Nicotine dependence, unspecified, uncomplicated; Z79.899 Other long term (current) drug therapy; Z87.440 Personal history of urinary (tract) infections; Z88.8 Allergy status to other drugs, medicaments and biological substances
CPT/HCPCS: 70450; 73552; 73590; 81001; 87088; 87186; 96374; 96375; 99284; J1200; J1885; J2405

== ENCOUNTER → 2018-10-06 | Outpatient (REF) | payer OTHER, MEDICAID ==
[~2018-10-06] MED LIST changes: +MACR100C43 PO
[2018-10-06 13:35] LABS: BASO # 0.1 10^3/uL (0.0-0.2); BASO % 0.7 % (0.0-1.0); EOS # 0.3 10^3/uL (0.0-0.50); EOS % 4.2 % (0.0-3.0); HEMATOCRIT 43.4 % (36.0-47.0); HEMOGLOBIN 14.3 g/dl (12.0-15.5); LYMPH # 2.4 10^3/uL (1.5-4.5); LYMPH % 35.6 % (24.0-44.0); MEAN CORPUSCULAR HEMOGLOBIN 31.6 pg (27.0-33.0); MEAN CORPUSCULAR HGB CONC 32.9 g/dl (32.0-36.5); MONO # 0.5 10^3/uL (0.0-0.8); MONO % 7.9 % (0.0-5.0); NEUTROPHILS # 3.5 10^3/uL (1.8-7.7); NEUTROPHILS % 51.5 % (36.0-66.0); PLATELET COUNT, AUTOMATED 294 10^3/uL (150-450); RED BLOOD COUNT 4.52 10^6/uL (4.00-5.40); WHITE BLOOD COUNT 6.7 10^3/uL (4.0-10.0)
[2018-10-06 14:04] LABS: ERYTHROCYTE SEDIMENTATION RATE 11 mm/hr (0-20)
[2018-10-06 14:14] LABS: ALBUMIN 3.7 GM/DL (3.2-5.2); ALT/SGPT 18 U/L (12-78); BILIRUBIN,TOTAL 0.4 MG/DL (0.2-1.0); BLOOD UREA NITROGEN 15 MG/DL (7-18); CALCIUM LEVEL 9.2 MG/DL (8.5-10.1); CARBON DIOXIDE LEVEL 27 MEQ/L (21-32); CHLORIDE LEVEL 109 MEQ/L (98-107); CREATININE FOR GFR 0.61 MG/DL (0.55-1.30); GLOMERULAR FILTRATION RATE > 60.0 (>58); GLUCOSE, FASTING 66 MG/DL (70-100); POTASSIUM SERUM 3.9 MEQ/L (3.5-5.1); RHEUMATOID FACTOR QUANT < 10.0 IU/ML (<15.0); SODIUM LEVEL 142 MEQ/L (136-145); TOTAL 25(OH) VITAMIN D 23.7 NG/ML (30.0-100.0); TOTAL PROTEIN 6.8 GM/DL (6.4-8.2)
[2018-10-07 15:30] LABS: ANTINUCLEAR ANTIBODIES DIRECT Negative (Negative)
== END ==
LOC: M LABNEURO 10:55
PROVIDERS: ATTEND Psychiatry & Neurology Neurology
DX: R51 Headache (principal)

== ENCOUNTER 2019-02-27 16:32 | Emergency (ER) | payer MEDICAID, OTHER ==
[~2019-02-27] VITALS: Ht 154.9 cm; Wt 79.5 kg
[~2019-02-27 16:32] MED LIST changes: -OXYB10TA PO; +OXYB10TA2 PO
[2019-02-27] MEDS ORDERED: QUET150T2 (16:42)
[2019-02-27] MEDS ORDERED: LORA1TAB12 (16:42)
[2019-02-27] MEDS ORDERED: LORA0.5T11 (16:42)
[2019-02-27] MEDS ORDERED: HYDR-4517 (16:42)
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
[2019-02-27 18:14] VITALS: BP 106/64
--- NOTE | 2019-02-27 18:33 | REP ---
Clinical: Trauma. Technique: AP, lateral, bilateral oblique and sunrise views of the right knee. Findings: Early moderate osteoarthritic degenerative changes and osteopenia noted. Findings include cortical irregularity along the lateral femoral condyle, early osteophyte formation along the lateral tibiofemoral compartment as well as moderate osteophyte formation along the patellar contour. Medial joint space narrowing noted. No acute fracture dislocation. No effusion. Impression: Mild osteopenia and moderate arthritic degenerative changes. No acute fracture or dislocation. Electronically Signed by Michael Hoffman MD 02/27/2019 06:25 P
== END 2019-02-27 18:46 | disposition home or self-care (01) ==
LOC: M ED 16:32
DX: S06.0X0A Concussion without loss of consciousness, initial encounter (principal); S80.01XA Contusion of right knee, initial encounter; W18.39XA Other fall on same level, initial encounter; Y92.018 Other place in single-family (private) house as the place of occurrence of the external cause; M50.30 Other cervical disc degeneration, unspecified cervical region; J44.9 Chronic obstructive pulmonary disease, unspecified; K21.9 Gastro-esophageal reflux disease without esophagitis; E78.5 Hyperlipidemia, unspecified; F31.9 Bipolar disorder, unspecified; F20.9 Schizophrenia, unspecified; Z79.899 Other long term (current) drug therapy; Z88.8 Allergy status to other drugs, medicaments and biological substances; F17.210 Nicotine dependence, cigarettes, uncomplicated

== ENCOUNTER 2019-08-04 12:12 | Emergency (ER) | payer OTHER ==
[~2019-08-04] VITALS: Ht 154.9 cm; Wt 88.0 kg
[~2019-08-04 12:12] MED LIST changes: +HYDR-4517; -LAMO200T2 PO; +LAMO200T3 PO; +LORA0.5T5; +LORA1TAB4; -OXYB10TA2 PO; +OXYB10TA23 PO; +QUET150T2
[2019-08-04] MEDS ORDERED: LEXA1TAB2 PO (13:29)
[2019-08-04] MEDS ORDERED: VITA100054 PO (13:29)
[2019-08-04] MEDS ORDERED: ONDANSETRON 4MG/2ML VIAL (J2405) IV ONE (13:30)
[2019-08-04] MEDS ORDERED: NS 1,000 ML IV ONE (13:30)
[2019-08-04 14:05] LABS: BASO % 0.7 % (0.0-1.0); EOS # 0.2 10^3/uL (0.0-0.5); EOS % 2.8 % (0.0-3.0); HEMATOCRIT 47.6 % (36.0-47.0); HEMOGLOBIN 15.5 g/dl (12.0-15.5); LYMPH # 2.2 10^3/uL (1.5-5.0); LYMPH % 36.2 % (24.0-44.0); MEAN CORPUSCULAR HEMOGLOBIN 31.4 pg (27.0-33.0); MEAN CORPUSCULAR HGB CONC 32.6 g/dl (32.0-36.5); MEAN CORPUSCULAR VOLUME 96.6 fl (80.0-96.0); MONO # 0.4 10^3/uL (0.0-0.8); MONO % 7.3 % (0.0-5.0); NEUTROPHILS # 3.2 10^3/uL (1.5-8.5); NEUTROPHILS % 52.7 % (36.0-66.0); PLATELET COUNT, AUTOMATED 281 10^3/uL (150-450); RED BLOOD COUNT 4.93 10^6/uL (4.00-5.40)
[2019-08-04 14:27] LABS: INFLUENZA A AMPLIFICATION NEGATIVE (NEGATIVE); INFLUENZA B AMPLIFICATION NEGATIVE (NEGATIVE)
[2019-08-04 14:33] LABS: ALBUMIN 3.6 GM/DL (3.2-5.2); ALT/SGPT 18 U/L (12-78); BILIRUBIN,DIRECT 0.2 MG/DL (0.0-0.2); BILIRUBIN,TOTAL 0.4 MG/DL (0.2-1.0); BLOOD UREA NITROGEN 5 MG/DL (7-18); CALCIUM LEVEL 9.8 MG/DL (8.5-10.1); CARBON DIOXIDE LEVEL 31 MEQ/L (21-32); CHLORIDE LEVEL 107 MEQ/L (98-107); GLOMERULAR FILTRATION RATE > 60.0 (>51); GLUCOSE, FASTING 88 MG/DL (70-100); POTASSIUM SERUM 3.4 MEQ/L (3.5-5.1); SODIUM LEVEL 141 MEQ/L (136-145)
[2019-08-04] MEDS ORDERED: KETOROLAC 30 MG/ML VIAL (J1885) IV ONE (16:45)
[2019-08-04] MEDS ORDERED: ISOVUE-370 76% 100ML VIAL (Q9967) As Ordered ONE (16:55)
[2019-08-04 17:05] LABS: CK-MB VALUE MASS 1.6 NG/ML (<3.6); CPK CREATINE PHOSPHOKINASE 82 U/L (26-192); MB/CK RELATIVE INDEX 1.95 (< OR =4); TROPONIN I < 0.02 NG/ML (< 0.10)
--- NOTE | 2019-08-04 17:21 | REPVR ---
PROCEDURE INFORMATION: Exam: CT Abdomen And Pelvis With Contrast Exam date and time: 08/04/2019 5:01 PM Age: 49 years old Clinical indication: Abdominal pain; Generalized; Additional info: Diffuse abd pain, increased epigastric pain TECHNIQUE: Imaging protocol: Computed tomography of the abdomen and pelvis with intravenous contrast. Radiation optimization: All CT scans at this facility use at least one of these dose optimization techniques: automated exposure control; mA and/or kV adjustment per patient size (includes targeted exams where dose is matched to clinical indication); or iterative reconstruction. Contrast material: ISOVUE 370; Contrast volume: 100 ml; Contrast route: IV; COMPARISON: CT ABD/PEL W/IV ORAL CONTRAS 05/21/2018 10:20 PM FINDINGS: Lungs: Soft tissue nodule medial aspect of the right lower lobe in the infrahilar region measures 1.7 x 1.1 cm. Unclear if this represents a parenchymal mass or hilar adenopathy. Correlation with thoracic CT suggested. Liver: There is a diffuse decrease in hepatic parenchymal density, consistent with fatty infiltration. Gallbladder and bile ducts: There has been a cholecystectomy. Pancreas: Normal. No ductal dilation. Spleen: Normal. No splenomegaly. Adrenals: Normal. No mass. Kidneys and ureters: Normal. No hydronephrosis. Stomach and bowel: Unremarkable. No obstruction. No mucosal thickening. Appendix: No evidence of appendicitis. Intraperitoneal space: Unremarkable. No free air. No significant fluid collection. Vasculature: Unremarkable. No abdominal aortic aneurysm. Lymph nodes: See Lungs Finding. Bladder: Unremarkable as visualized. Reproductive: There has been a hysterectomy. Bones/joints: Moderate central spinal stenosis L2-L3, severe central spinal stenosis L3-L4 and L4-L5. Slight anterolisthesis of L4 on L5. Soft tissues: Unremarkable. IMPRESSION: 1. Soft tissue nodule medial aspect of the right lower lobe in the infrahilar region measures 1.7 x 1.1 cm. Unclear if this represents a parenchymal mass or hilar adenopathy. Correlation with thoracic CT suggested. 2. There is a diffuse decrease in hepatic parenchymal density, consistent with fatty infiltration. 3. There has been a cholecystectomy. 4. There has been a hysterectomy. 5. No acute findings. Electronically signed by: Camilo Arzate On 08/04/2019 17:20:51 PM
[2019-08-04] MEDS ORDERED: PROMETHAZINE INJ 25 MG/ML VIAL (J2550) IV ONE (18:00)
--- NOTE | 2019-08-04 18:25 | REPVR ---
PROCEDURE INFORMATION: Exam: CT Chest Without Contrast Exam date and time: 08/04/2019 5:59 PM Age: 49 years old Clinical indication: Abnormal findings; Lung mass or nodule; Not specified; Additional info: Nodule on abd/pelvic CT TECHNIQUE: Imaging protocol: Computed tomography of the chest without contrast. 3D rendering: MIP and/or 3D reconstructed images were created by the technologist. Radiation optimization: All CT scans at this facility use at least one of these dose optimization techniques: automated exposure control; mA and/or kV adjustment per patient size (includes targeted exams where dose is matched to clinical indication); or iterative reconstruction. COMPARISON: CR Chest, 2 view PA, Lat 08/04/2019 5:06 PM FINDINGS: Lungs: Unremarkable. No consolidation. No masses. Pleural space: Unremarkable. No pneumothorax. No pleural effusion. Heart: Unremarkable. No cardiomegaly. No pericardial effusion. Aorta: Unremarkable. No aortic aneurysm. Lymph nodes: Mildly prominent right infrahilar lymph node measures 1.4 x 1.1 x 0.6 cm corresponds to the finding demonstrated on prior abdominal CT. Finding likely postinflammatory. Bones/joints: Unremarkable. No acute fracture. Soft tissues: Unremarkable. IMPRESSION: 1. Mildly prominent right infrahilar lymph node measures 1.4 x 1.1 x 0.6 cm corresponds to the finding demonstrated on prior abdominal CT. Finding likely postinflammatory. 2. Otherwise unremarkable. Electronically signed by: Camilo Arzate On 08/04/2019 18:25:34 PM
--- NOTE | 2019-08-04 18:49 | REP ---
CHEST, TWO VIEWS: Two views of the chest are performed and compared to prior study of 07/14/2018. There is no acute infiltrate or pulmonary edema. There is mild cardiomegaly. The mediastinal silhouette is unremarkable and unchanged. There are mild degenerative changes of the spine. IMPRESSION: Mild cardiomegaly. No acute infiltrate. Unreviewed
[2019-08-04] MEDS ORDERED: MECLIZINE 25 MG TABLET PO ONE (20:15)
[2019-08-04 21:49] VITALS: BP 104/62
--- NOTE | 2019-08-05 10:54 | ED PDOC ---
Post-Departure Follow-Up dr tubbs faxed formal report of ct chest for fu Gianna Wild MD Aug 05, 2019 10:54
--- NOTE | 2019-08-05 10:55 | ED PDOC ---
Post-Departure Follow-Up ct abd/p also faxed to dr kaplan for fu Gianna Wild MD Aug 05, 2019 10:55
--- NOTE | 2019-08-05 14:57 | ECGEPIP ---
[facility] - ED Test Date: 2019-08-04 Pat Name: KARRI CARREON Department: Room: - Gender: Female [employer]: : 1970 Requested By: ALBERTO Duenas PA-C Order Number: [id number] Reading MD: Anahy Morales Measurements Intervals [place] Rate: 49 P: 63 MI: 163 QRS: 42 QRSD: 100 T: 18 QT: 455 QTc: 415 Interpretive Statements SINUS BRADYCARDIA NONSPECIFIC T-WAVE ABNORMALITY DECREASED RATE 05/22/18 Electronically Signed on 08-05-2019 14:57:38 EST by Anahy Morales
== END 2019-08-04 21:49 | disposition home or self-care (01) ==
LOC: M ED 12:12
DX: K76.0 Fatty (change of) liver, not elsewhere classified (principal); R00.1 Bradycardia, unspecified; E87.6 Hypokalemia; R59.9 Enlarged lymph nodes, unspecified; R10.9 Unspecified abdominal pain; R11.2 Nausea with vomiting, unspecified; R19.7 Diarrhea, unspecified; E78.5 Hyperlipidemia, unspecified; K21.9 Gastro-esophageal reflux disease without esophagitis; J44.9 Chronic obstructive pulmonary disease, unspecified; M48.00 Spinal stenosis, site unspecified; G89.29 Other chronic pain; M54.9 Dorsalgia, unspecified; F41.9 Anxiety disorder, unspecified; F32.9 Major depressive disorder, single episode, unspecified; M51.36 Other intervertebral disc degeneration, lumbar region; Z86.61 Personal history of infections of the central nervous system; R91.1 Solitary pulmonary nodule; Z79.899 Other long term (current) drug therapy; Z88.8 Allergy status to other drugs, medicaments and biological substances
CPT/HCPCS: 71046; 71250; 74177; 80048; 80076; 81001; 82550; 82553; 84443; 85025; 87086; 87502; 93005; 96361; 96374; 96375; 99284; J1885; J2405; Q9967

== ENCOUNTER → 2019-08-25 | Outpatient (CLI) | payer OTHER ==
[~2019-08-25] MED LIST changes: +LEXA1TAB2 PO; +VITA100054 PO
--- NOTE | 2019-08-25 20:12 | REP ---
SACRUM AND COCCYX, THREE VIEWS: Three views of sacrum and coccyx performed. There is no evidence of acute fracture, dislocation or intrinsic bone disease. IMPRESSION: No fracture or dislocation. Electronically Signed by Domingo Early MD 08/25/2019 08:26 P
--- NOTE | 2019-08-25 20:13 | REP ---
RIGHT ANKLE SERIES, FOUR VIEWS: Four views of the right ankle are performed. Smoothly marginated calcific density at the tip of the medial malleolus probably represents an old avulsion fracture. I see no evidence of acute fracture or dislocation. There is mild spurring of the anterior and posterior distal tibia as well as the posterior and inferior calcaneus. IMPRESSION: Suspect old avulsion fracture medial malleolus. Electronically Signed by Domingo Early MD 08/25/2019 08:26 P
--- NOTE | 2019-08-25 20:15 | REP ---
LUMBOSACRAL SPINE: Five views of the lumbosacral spine are performed. There is no acute fracture. There is normal lumbar lordosis. There is mild disc space narrowing at L4-L5 and L5-S1. There is sclerosis and spurring at the posterior facet joints of a moderate degree at L3-4, L4-5 and L5-S1. Posterior elements are intact. IMPRESSION: Degenerative changes without fracture or dislocation. Electronically Signed by Domingo Early MD 08/25/2019 08:26 P
--- NOTE | 2019-08-25 20:16 | REP ---
RIGHT LOWER LEG, AP AND LATERAL: AP and lateral views of the right lower leg are performed and demonstrate no fracture or dislocation. No intrinsic osseous pathology is seen. IMPRESSION: No fracture or dislocation. Electronically Signed by Domingo Early MD 08/25/2019 08:26 P
== END ==
LOC: M WUC 17:20
PROVIDERS: ATTEND Physician Assistant
DX: S30.0XXA Contusion of lower back and pelvis, initial encounter (principal); S80.11XA Contusion of right lower leg, initial encounter; S90.01XA Contusion of right ankle, initial encounter; M51.37 Other intervertebral disc degeneration, lumbosacral region; M77.9 Enthesopathy, unspecified; X58.XXXA Exposure to other specified factors, initial encounter; Y92.9 Unspecified place or not applicable

== ENCOUNTER → 2019-09-10 | Outpatient (REF) | payer OTHER | LOC: M SFHCWAGY 13:28 | PROVIDERS: ATTEND Nurse Practitioner Family | DX: Z12.72 Encounter for screening for malignant neoplasm of vagina (principal); A59.01 Trichomonal vulvovaginitis ==

== ENCOUNTER → 2019-12-24 | Outpatient (CLI) | payer OTHER ==
[2019-12-24 15:53] LABS: BASO % 0.5 % (0.0-1.0); EOS # 0.3 10^3/uL (0.0-0.5); EOS % 3.9 % (0.0-3.0); HEMATOCRIT 44.8 % (36.0-47.0); HEMOGLOBIN 14.8 g/dl (12.0-15.5); LYMPH # 2.4 10^3/uL (1.5-5.0); LYMPH % 32.2 % (24.0-44.0); MEAN CORPUSCULAR HEMOGLOBIN 31.7 pg (27.0-33.0); MEAN CORPUSCULAR VOLUME 95.9 fl (80.0-96.0); MONO # 0.6 10^3/uL (0.0-0.8); MONO % 8.2 % (0.0-5.0); NEUTROPHILS # 4.1 10^3/uL (1.5-8.5); NEUTROPHILS % 54.8 % (36.0-66.0); PLATELET COUNT, AUTOMATED 328 10^3/uL (150-450); RED BLOOD COUNT 4.67 10^6/uL (4.00-5.40); WHITE BLOOD COUNT 7.5 10^3/uL (4.0-10.0)
[2019-12-24 15:59] LABS: HEMOGLOBIN A1c 5.4 %
[2019-12-24 16:14] LABS: ALBUMIN 3.6 GM/DL (3.2-5.2); ALT/SGPT 18 U/L (12-78); BILIRUBIN,TOTAL 0.5 MG/DL (0.2-1.0); BLOOD UREA NITROGEN 8 MG/DL (7-18); CALCIUM LEVEL 9.6 MG/DL (8.5-10.1); CARBON DIOXIDE LEVEL 26 MEQ/L (21-32); CHLORIDE LEVEL 111 MEQ/L (98-107); CHOLESTEROL LEVEL 261 MG/DL (<200); CHOLESTEROL RISK RATIO 5.931 (<5); CREATININE FOR GFR 0.67 MG/DL (0.55-1.30); FREE T4 0.83 NG/DL (0.76-1.46); GLOMERULAR FILTRATION RATE > 60.0 (>51); GLUCOSE, FASTING 84 MG/DL (70-100); HDL CHOLESTEROL 44 MG/DL (>40); LDL CHOLESTEROL 182 MG/DL (<100); NON-HDL-C 217 MG/DL; POTASSIUM SERUM 3.7 MEQ/L (3.5-5.1); SODIUM LEVEL 141 MEQ/L (136-145); TOTAL PROTEIN 7.2 GM/DL (6.4-8.2); TRIGLYCERIDES LEVEL 174 MG/DL (<150)
== END ==
LOC: M LAB 15:03
PROVIDERS: ATTEND Nurse Practitioner Psychiatric/Mental Health
DX: F33.9 Major depressive disorder, recurrent, unspecified (principal)

== ENCOUNTER → 2020-04-19 | Outpatient (CLI) | payer OTHER ==
[~2020-04-19] MED LIST changes: +PANT40TA29 PO; -PANT40TA3 PO; -TAB-TAB PO; +TAB-TAB2 PO
[2020-04-19 20:39] LABS: APPEARANCE, URINE HAZY (CLEAR); BACTERIA, URINE AUTO 1+ (NEGATIVE); BILIRUBIN, URINE AUTO NEGATIVE (NEGATIVE); BLOOD, URINE BLOOD 1+ (NEGATIVE); COLOR, URINE YELLOW (YELLOW); GLUCOSE, URINE (UA) AUTO NEGATIVE (NEGATIVE); KETONE, URINE AUTO NEGATIVE (NEGATIVE); LEUKOCYTE ESTERASE, URINE AUTO 3+ (NEGATIVE); MUCUS, URINE SMALL (NEGATIVE); NITRITE, URINE AUTO NEGATIVE (NEGATIVE); PROTEIN, URINE AUTO NEGATIVE (NEGATIVE); RBC, URINE AUTO 7 /HPF (0-3); SPECIFIC GRAVITY URINE AUTO 1.004 (1.002-1.035); SQUAMOUS EPITHELIAL CELL UR AU 0 /HPF (0-6); UROBILINOGEN, URINE AUTO 0.2 mg/dL (0.0-2.0); WBC, URINE AUTO TNTC /HPF (0-3)
== END ==
LOC: M WUC 16:40
PROVIDERS: ATTEND Family Medicine
DX: R30.0 Dysuria (principal)

== ENCOUNTER → 2020-05-02 | Outpatient (CLI) | payer OTHER ==
--- NOTE | 2020-05-03 08:30 | REP ---
INDICATION: SPINAL STENOSIS LUMBAR REGION WITHOUT CLAUDICATION. COMPARISON: June 12, 2018.. TECHNIQUE: Sagittal and axial T1 and T2-weighted scans are acquired in the usual fashion with and without fat saturation. Sequences include spin echo, turbo spin-echo, and STIR imaging sequences. FINDINGS: Lumbar vertebral body heights are preserved. Cortical and medullary bone signal intensity are normal. The tip of the conus medullaris is normal in position and appearance at T12-L1. No extra vertebral abnormality is appreciated. Axial and sagittal images at at the L1-2 level show no abnormality. At L 2 L3, there is facet hypertrophy bilaterally, right greater than left. No neural foraminal narrowing or spinal stenosis is seen. At L3-L4, there is mild central canal stenosis due to developmentally short pedicles, minimal diffuse disc bulging, and moderate ligamentum flavum and facet hypertrophy. These findings are unchanged. Midline AP dimension of the thecal sac at L3-4 is 9 mm. No neural foraminal narrowing is seen. At L4-5, there is stable 3 mm grade 1 spondylolisthesis. There is moderate facet and ligamentum flavum hypertrophy and minimal diffuse disc bulging producing mild to moderate central canal stenosis at L4-5 unchanged from the comparison study June 12, 2018. The midline AP dimension of the thecal sac at L4-5 is 9 mm. A arthritis associated cyst is seen in the right dorsal extra-spinal soft tissues unchanged from the comparison study. There is mild bilateral neural foraminal narrowing. At L5-S1, moderate bilateral facet hypertrophy is again noted. No disc protrusion, central canal stenosis, or neural foraminal compromise. IMPRESSION: There is stable degenerative spondylosis changes. The dominant abnormality is a at L4-5 where there is moderate central canal stenosis due to disc bulging, ligamentum flavum facet hypertrophy, and developmentally short pedicles. Mild bilateral neural foraminal narrowing is felt to be present at L4-5. Findings are stable from the prior study. <Electronically signed by Magan Rodriguez > 05/03/20 [id number]
== END ==
LOC: M RAD 17:23
PROVIDERS: ATTEND Family Medicine
DX: M48.061 Spinal stenosis, lumbar region without neurogenic claudication (principal)

== ENCOUNTER → 2020-10-25 | Outpatient (REF) | payer OTHER ==
[2020-10-25 16:52] LABS: HEMOGLOBIN A1c 5.2 %
[2020-10-25 16:59] LABS: ALBUMIN 3.7 GM/DL (3.2-5.2); ALT/SGPT 22 U/L (12-78); BILIRUBIN,TOTAL 0.5 MG/DL (0.2-1.0); BLOOD UREA NITROGEN 14 MG/DL (7-18); CALCIUM LEVEL 10.1 MG/DL (8.5-10.1); CARBON DIOXIDE LEVEL 29 MEQ/L (21-32); CHLORIDE LEVEL 108 MEQ/L (98-107); CHOLESTEROL LEVEL 242 MG/DL (<200); CHOLESTEROL RISK RATIO 5.041 (<5); CREATININE FOR GFR 0.55 MG/DL (0.55-1.30); GLOMERULAR FILTRATION RATE > 60.0 (>51); GLUCOSE, FASTING 96 MG/DL (70-100); HDL CHOLESTEROL 48 MG/DL (>40); LDL CHOLESTEROL 163 MG/DL (<100); NON-HDL-C 194 MG/DL; POTASSIUM SERUM 4.5 MEQ/L (3.5-5.1); SODIUM LEVEL 142 MEQ/L (136-145); TRIGLYCERIDES LEVEL 155 MG/DL (<150)
== END ==
LOC: M SFHCCLAY 12:00
PROVIDERS: ATTEND Family Medicine
DX: E78.5 Hyperlipidemia, unspecified (principal); R73.01 Impaired fasting glucose

== ENCOUNTER → 2020-10-25 | Outpatient (CLI) | payer OTHER ==
--- NOTE | 2020-10-25 13:39 | REP ---
INDICATION: M25.551 RIGHT HIP PAIN COMPARISON: 10/11/2016. TECHNIQUE: Two views right hip performed. FINDINGS: There is no evidence of acute fracture, dislocation, or intrinsic bone disease.There is mild joint space narrowing, subchondral sclerosis and spurring. IMPRESSION: No fracture or dislocation. Mild stable arthritic changes. <Electronically signed by Domingo Early > 10/25/20 [id number]
== END ==
LOC: M CLY 11:45
PROVIDERS: ATTEND Family Medicine
DX: M25.551 Pain in right hip (principal); M16.11 Unilateral primary osteoarthritis, right hip

== ENCOUNTER → 2020-12-07 | Outpatient (REF) | payer OTHER ==
[2020-12-07 17:15] LABS: APPEARANCE, URINE CLEAR (CLEAR); BACTERIA, URINE AUTO NEGATIVE (NEGATIVE); BILIRUBIN, URINE AUTO NEGATIVE (NEGATIVE); BLOOD, URINE BLOOD NEGATIVE (NEGATIVE); COLOR, URINE YELLOW (YELLOW); GLUCOSE, URINE (UA) AUTO NEGATIVE (NEGATIVE); KETONE, URINE AUTO NEGATIVE (NEGATIVE); LEUKOCYTE ESTERASE, URINE AUTO NEGATIVE (NEGATIVE); NITRITE, URINE AUTO NEGATIVE (NEGATIVE); PROTEIN, URINE AUTO NEGATIVE (NEGATIVE); RBC, URINE AUTO 0 /HPF (0-3); SQUAMOUS EPITHELIAL CELL UR AU 0 /HPF (0-6); UROBILINOGEN, URINE AUTO 0.2 mg/dL (0.0-2.0); WBC, URINE AUTO 1 /HPF (0-3)
== END ==
LOC: M SFHCWAGY 16:46
PROVIDERS: ATTEND Specialist
DX: N39.41 Urge incontinence (principal)

== ENCOUNTER → 2020-12-23 | Outpatient (CLI) | payer OTHER ==
--- NOTE | 2020-12-23 14:22 | REPMRS ---
Patient History The patient states she has not had a clinical breast exam in over a year. Family history of unknown cancer at age 40 in father, breast cancer at age 45, colorectal cancer at age 50 or over , and endometrial cancer at age 50 or over in mother, pancreatic cancer at age 50 or over in paternal aunt. Took hormonal contraceptives for 6 months. Patient states no breast complaints today. Patient has signed MRS History Sheet. Digital Woman Screen Mammo: December 23, 2020 - Exam #: [id number] Bilateral CC and MLO view(s) were taken. Technologist: Linda Singleton, Technologist Prior study comparison: March 27, 2016, bilateral digital mammo screening bilat, performed at [facility]. May 19, 2012, bilateral bilat screen digital mammo, performed at [facility] ([facility]). May 09, 2011, bilateral bilat screen digital mammo, performed at [facility] ([facility]). FINDINGS: The breast tissue is almost entirely fat. The Volpara volumetric breast density category is: A. There has been no change in the appearance of the mammogram from the prior studies. There is no interval development of dominant mass, architectural distortion, or grouped microcalcification typical of malignancy. 3-D tomosynthesis shows no additional findings. Assessment: BI-RADS/ACR category 1 mammogram. Negative Mammogram. Recommendation Routine screening mammogram of both breasts in 1 year (for women over age 40). This patient's [facility] Lifetime Breast Cancer RIsk is estimated at 16.8 %. This mammogram was interpreted with the aid of an FDA-approved computer-aided dectection system. Electronically Signed By: Magan Rodriguez MD 12/23/20 [id number]
== END ==
LOC: M WHC 13:06
PROVIDERS: ATTEND Specialist
DX: Z12.31 Encounter for screening mammogram for malignant neoplasm of breast (principal); Z80.3 Family history of malignant neoplasm of breast; Z80.0 Family history of malignant neoplasm of digestive organs; Z80.49 Family history of malignant neoplasm of other genital organs

== ENCOUNTER → 2021-09-05 | Outpatient (REF) | payer OTHER ==
[2021-09-06 12:16] LABS: ALBUMIN 3.4 GM/DL (3.2-5.2); ALT/SGPT 26 U/L (12-78); BILIRUBIN,TOTAL 0.8 MG/DL (0.2-1.0); BLOOD UREA NITROGEN 8 MG/DL (7-18); CALCIUM LEVEL 9.4 MG/DL (8.5-10.1); CARBON DIOXIDE LEVEL 30 MEQ/L (21-32); CHLORIDE LEVEL 109 MEQ/L (98-107); CHOLESTEROL LEVEL 253 MG/DL (<200); CHOLESTEROL RISK RATIO 6.837 (<5); CREATININE FOR GFR 0.66 MG/DL (0.55-1.30); GLOMERULAR FILTRATION RATE > 60.0 (>51); GLUCOSE, FASTING 98 MG/DL (70-100); HDL CHOLESTEROL 37 MG/DL (>40); LDL CHOLESTEROL 148 MG/DL (<100); NON-HDL-C 216 MG/DL; POTASSIUM SERUM 4.4 MEQ/L (3.5-5.1); SODIUM LEVEL 141 MEQ/L (136-145); TOTAL PROTEIN 6.6 GM/DL (6.4-8.2); TRIGLYCERIDES LEVEL 339 MG/DL (<150)
[2021-09-06 12:43] LABS: HEMOGLOBIN A1c 5.6 %
== END ==
LOC: M SFHCCLAY 14:21
PROVIDERS: ATTEND Family Medicine
DX: E78.5 Hyperlipidemia, unspecified (principal); R73.01 Impaired fasting glucose

== ENCOUNTER → 2021-09-05 | Outpatient (CLI) | payer OTHER | LOC: M CLY 14:41 | PROVIDERS: ATTEND Family Medicine | DX: M54.2 Cervicalgia (principal); M47.812 Spondylosis without myelopathy or radiculopathy, cervical region ==

== ENCOUNTER → 2021-10-10 | Outpatient (CLI) | payer OTHER | LOC: M RAD 07:33 | PROVIDERS: ATTEND Family Medicine | DX: M25.551 Pain in right hip (principal); M70.61 Trochanteric bursitis, right hip ==

== ENCOUNTER → 2021-12-26 | Outpatient (CLI) | payer OTHER | LOC: M RAD 12:10 | PROVIDERS: ATTEND Family Medicine | DX: I73.9 Peripheral vascular disease, unspecified (principal) ==

== ENCOUNTER → 2022-02-02 | Outpatient (CLI) | payer OTHER ==
[~2022-02-02] MED LIST changes: +ISOVUE-370 76% 100ML VIAL As Ordered ONE
== END ==
LOC: M RAD 08:12
PROVIDERS: ATTEND Family Medicine
DX: I73.9 Peripheral vascular disease, unspecified (principal); M47.816 Spondylosis without myelopathy or radiculopathy, lumbar region; M48.061 Spinal stenosis, lumbar region without neurogenic claudication; Z90.49 Acquired absence of other specified parts of digestive tract
CPT/HCPCS: 73706; Q9967

== ENCOUNTER → 2022-03-19 | Outpatient (CLI) | payer OTHER ==
[~2022-03-19] MED LIST changes: -ISOVUE-370 76% 100ML VIAL As Ordered ONE
[2022-03-19 11:28] LABS: BLOOD UREA NITROGEN 15 MG/DL (7-18); CALCIUM LEVEL 10.1 MG/DL (8.5-10.1); CARBON DIOXIDE LEVEL 28 MEQ/L (21-32); CHLORIDE LEVEL 112 MEQ/L (98-107); CREATININE FOR GFR 0.59 MG/DL (0.55-1.30); GLOMERULAR FILTRATION RATE > 60.0 (>51); GLUCOSE, FASTING 102 MG/DL (70-100); POTASSIUM SERUM 4.4 MEQ/L (3.5-5.1); SODIUM LEVEL 144 MEQ/L (136-145)
[2022-03-19 11:29] LABS: ALBUMIN 3.5 GM/DL (3.2-5.2); ALT/SGPT 28 U/L (12-78); BILIRUBIN,TOTAL 0.6 MG/DL (0.2-1.0); TOTAL PROTEIN 6.6 GM/DL (6.4-8.2)
[2022-03-19 12:36] LABS: HEMOGLOBIN A1c 5.5 %
== END ==
LOC: M LAB 09:52
PROVIDERS: ATTEND Family Medicine
DX: R73.01 Impaired fasting glucose (principal)

== ENCOUNTER → 2022-04-13 | Outpatient (CLI) | payer OTHER | LOC: M RAD 16:31 | PROVIDERS: ATTEND Family Medicine | DX: M50.21 Other cervical disc displacement, high cervical region (principal); M47.812 Spondylosis without myelopathy or radiculopathy, cervical region; M25.78 Osteophyte, vertebrae; M48.02 Spinal stenosis, cervical region ==

== ENCOUNTER 2022-08-12 18:50 | Emergency (ER) | payer OTHER ==
[~2022-08-12] VITALS: Ht 154.9 cm; Wt 89.1 kg
[~2022-08-12 18:50] MED LIST changes: +QUET150T14; -QUET150T2
[2022-08-12] MEDS ORDERED: IPRATROPIUM 0.5MG/ALBUTEROL 2.5MG INH SOL UD 3ML (DUONEB) NEB ONE (19:10)
[2022-08-12] MEDS ORDERED: ALBUTEROL SULFATE 2.5MG/0.5ML INH NEB SOLN NEB ONE (19:10)
[2022-08-12] MEDS ORDERED: methylPREDNISolone 125MG 2ML VIAL IV ONE (19:10)
[2022-08-12] MEDS ORDERED: TOPI50TA9 (19:12)
[2022-08-12] MEDS ORDERED: LIDO1PAD (19:12)
[2022-08-12] MEDS ORDERED: GABA-1171 (19:12)
[2022-08-12] MEDS ORDERED: ALBU8.5H (19:13)
[2022-08-12 20:03] LABS: BASO % 0.4 % (0.0-1.0); EOS # 0.5 10^3/uL (0.0-0.5); EOS % 4.5 % (0.0-3.0); HEMATOCRIT 46.4 % (36.0-47.0); HEMOGLOBIN 15.4 g/dl (12.0-15.5); LYMPH # 1.7 10^3/uL (1.5-5.0); LYMPH % 15.2 % (24.0-44.0); MEAN CORPUSCULAR HEMOGLOBIN 31.4 pg (27.0-33.0); MEAN CORPUSCULAR HGB CONC 33.2 g/dl (32.0-36.5); MEAN CORPUSCULAR VOLUME 94.5 fl (80.0-96.0); MONO # 0.9 10^3/uL (0.0-0.8); MONO % 7.8 % (2.0-8.0); NEUTROPHILS # 8.2 10^3/uL (1.5-8.5); NEUTROPHILS % 71.6 % (36.0-66.0); PLATELET COUNT, AUTOMATED 288 10^3/uL (150-450); RED BLOOD COUNT 4.91 10^6/uL (4.00-5.40); WHITE BLOOD COUNT 11.4 10^3/uL (4.0-10.0)
[2022-08-12 20:16] LABS: CK-MB VALUE MASS < 1.0 NG/ML (<3.6)
[2022-08-12 20:17] LABS: ALBUMIN 3.8 G/DL (3.2-5.2); ALKALINE PHOSPHATASE 108 U/L (46-116); ALT/SGPT 15 U/L (7.0-40); AST/SGOT 8 U/L (<34); BILIRUBIN,DIRECT 0.2 MG/DL (<0.4); BILIRUBIN,TOTAL 0.7 MG/DL (0.3-1.2); BLOOD UREA NITROGEN 9 MG/DL (9-23); CALCIUM LEVEL 9.1 MG/DL (8.5-10.1); CARBON DIOXIDE LEVEL 26 MMOL/L (20-31); CHLORIDE LEVEL 110 MMOL/L (98-107); CPK CREATINE PHOSPHOKINASE 73 U/L (34-145); CREATININE FOR GFR 0.67 MG/DL (0.55-1.30); GLOMERULAR FILTRATION RATE > 60.0 (>51); GLUCOSE, FASTING 92 MG/DL (60-100); MB/CK RELATIVE INDEX 1.36 (< OR =4); POTASSIUM SERUM 3.6 MMOL/L (3.5-5.1); SODIUM LEVEL 142 MMOL/L (136-145); TOTAL PROTEIN 7.1 G/DL (5.7-8.2)
[2022-08-12 20:19] LABS: THYROID STIMULATING HORMONE 2.558 uIU/ML (0.55-4.78); THYROXINE (T4) 8.5 UG/DL (4.5-10.9)
[2022-08-12 20:36] LABS: CK-MB VALUE MASS < 1.0 NG/ML (<3.6)
[2022-08-12 20:38] LABS: CPK CREATINE PHOSPHOKINASE 82 U/L (34-145); MB/CK RELATIVE INDEX 1.21 (< OR =4)
[2022-08-12] MEDS ORDERED: COMBIVENT RESPIMAT 100-20MCG INHALER 4GM INH STA (20:50)
[2022-08-12] MEDS ORDERED: ALBUTEROL 90 MCG/ACT 8GM HFA INHALER INH ONE ×2 (20:55→21:00)
[2022-08-12 21:41] VITALS: O2SAT 94
[2022-08-12] MEDS ORDERED: PRED10TA2 PO (21:45)
[2022-08-12] MEDS ORDERED: VENTAER INH (21:45)
[2022-08-12] MEDS ORDERED: BENZ200C70 PO (21:59)
[2022-08-12 22:00] VITALS: BP 153/69
== END 2022-08-12 22:04 | disposition home or self-care (01) ==
LOC: M ED 18:50 → EDBD 18:50 → M ED 22:04
DX: J45.901 Unspecified asthma with (acute) exacerbation (principal); B34.9 Viral infection, unspecified; J44.9 Chronic obstructive pulmonary disease, unspecified; E78.5 Hyperlipidemia, unspecified; K21.9 Gastro-esophageal reflux disease without esophagitis; F33.9 Major depressive disorder, recurrent, unspecified; F41.9 Anxiety disorder, unspecified; Z88.8 Allergy status to other drugs, medicaments and biological substances; Z90.710 Acquired absence of both cervix and uterus; Z90.89 Acquired absence of other organs; Z90.49 Acquired absence of other specified parts of digestive tract; Z79.51 Long term (current) use of inhaled steroids; Z79.899 Other long term (current) drug therapy
CPT/HCPCS: 71045; 80048; 80076; 82550; 82553; 83605; 83880; 84436; 84443; 85025; 85379; 87040; 87486; 87581; 87633; 87798; 93005; 93041; 94640; 94760; 99285; J2930

== ENCOUNTER → 2022-08-14 | Outpatient (CLI) | payer OTHER ==
[~2022-08-14] MED LIST changes: +ALBU8.5H; +BENZ200C70 PO; +GABA-1171; +LIDO1PAD; +PRED10TA2 PO; +TOPI50TA9
== END ==
LOC: M CLY 14:38
PROVIDERS: ATTEND Family Medicine
DX: J45.20 Mild intermittent asthma, uncomplicated (principal); R91.8 Other nonspecific abnormal finding of lung field

== ENCOUNTER 2022-09-27 12:06 | Outpatient (RCR) | payer OTHER | END 2022-09-28 | LOC: M PT 12:06 | PROVIDERS: ATTEND Podiatrist Foot & Ankle Surgery | DX: M72.2 Plantar fascial fibromatosis (principal) ==

== ENCOUNTER → 2022-09-27 | Outpatient (CLI) | payer OTHER ==
[~2022-09-27] MED LIST changes: +TOPI-254; -TOPI50TA9
== END ==
LOC: M RAD 13:54
PROVIDERS: ATTEND Nurse Practitioner Family
DX: M25.512 Pain in left shoulder (principal)

== ENCOUNTER → 2022-10-16 | Outpatient (CLI) | payer OTHER | LOC: M WHC 11:22 | PROVIDERS: ATTEND Specialist | DX: Z12.31 Encounter for screening mammogram for malignant neoplasm of breast (principal) ==

== ENCOUNTER → 2022-11-30 | Outpatient (CLI) | payer OTHER ==
[~2022-11-30] MED LIST changes: +LORA1TAB23; -LORA1TAB4
== END ==
LOC: M PLARAD 09:44
PROVIDERS: ATTEND Family Medicine
DX: M50.221 Other cervical disc displacement at C4-C5 level (principal); M48.061 Spinal stenosis, lumbar region without neurogenic claudication; M50.223 Other cervical disc displacement at C6-C7 level; M50.222 Other cervical disc displacement at C5-C6 level; M47.816 Spondylosis without myelopathy or radiculopathy, lumbar region

== ENCOUNTER → 2022-12-17 | Outpatient (REF) | payer OTHER ==
[2022-12-17 17:54] LABS: ALBUMIN 3.6 G/DL (3.2-5.2); ALKALINE PHOSPHATASE 97 U/L (46-116); ALT/SGPT 32 U/L (7.0-40); AST/SGOT 41 U/L (<34); BILIRUBIN,TOTAL 0.7 MG/DL (0.3-1.2); BLOOD UREA NITROGEN 16 MG/DL (9-23); CALCIUM LEVEL 9.7 MG/DL (8.5-10.1); CARBON DIOXIDE LEVEL 28 MMOL/L (20-31); CHLORIDE LEVEL 108 MMOL/L (98-107); CHOLESTEROL LEVEL 215 MG/DL (<200); CHOLESTEROL RISK RATIO 4.19 (<5); CREATININE FOR GFR 0.56 MG/DL (0.55-1.30); GLOMERULAR FILTRATION RATE > 60.0 (>51); GLUCOSE, FASTING 100 MG/DL (60-100); HDL CHOLESTEROL 51.3 MG/DL (>40); LDL CHOLESTEROL 118.5 MG/DL (<100); NON-HDL-C 163.7 MG/DL; POTASSIUM SERUM 3.8 MMOL/L (3.5-5.1); SODIUM LEVEL 143 MMOL/L (136-145); TOTAL PROTEIN 6.4 G/DL (5.7-8.2); TRIGLYCERIDES LEVEL 226 MG/DL (<150)
[2022-12-17 17:57] LABS: HEMATOCRIT 45.3 % (36.0-47.0); HEMOGLOBIN 15.2 g/dl (12.0-15.5); MEAN CORPUSCULAR HEMOGLOBIN 31.5 pg (27.0-33.0); MEAN CORPUSCULAR HGB CONC 33.6 g/dl (32.0-36.5); PLATELET COUNT, AUTOMATED 283 10^3/uL (150-450); RED BLOOD COUNT 4.82 10^6/uL (4.00-5.40); WHITE BLOOD COUNT 7.3 10^3/uL (4.0-10.0)
[2022-12-17 19:27] LABS: HEMOGLOBIN A1c 5.3 % (4.0-6.0)
== END ==
LOC: M SFHCCLAY 11:19
PROVIDERS: ATTEND Family Medicine
DX: E78.5 Hyperlipidemia, unspecified (principal); R73.01 Impaired fasting glucose

== ENCOUNTER 2022-12-30 21:12 | Emergency (ER) | payer OTHER ==
[~2022-12-30] VITALS: Ht 157.5 cm; Wt 96.0 kg
[2022-12-30 21:13] VITALS: BP 124/73; TEMP 101.6; O2SAT 97
[2022-12-30] MEDS ORDERED: CICL8KIT2 EX (21:21)
[2022-12-30] MEDS ORDERED: LAMO25TA57 PO (21:21)
[2022-12-30] MEDS ORDERED: ACETAMINOPHEN TAB 650MG DOSE (2X325MG) PO ONE (21:40)
[2022-12-31] MEDS ORDERED: PENICILLIN V POTASSIUM 500 MG TAB PO ONE (00:05)
[2022-12-31] MEDS ORDERED: PENI500T PO (00:18)
== END 2022-12-31 01:22 | disposition home or self-care (01) ==
LOC: M ED 21:12
DX: J02.0 Streptococcal pharyngitis (principal); J45.909 Unspecified asthma, uncomplicated; J44.9 Chronic obstructive pulmonary disease, unspecified; K21.9 Gastro-esophageal reflux disease without esophagitis; F41.9 Anxiety disorder, unspecified; F32.A Depression, unspecified; E78.5 Hyperlipidemia, unspecified; Z79.899 Other long term (current) drug therapy; Z88.8 Allergy status to other drugs, medicaments and biological substances

== ENCOUNTER 2023-01-02 20:59 | Emergency (ER) | payer OTHER ==
[~2023-01-02] VITALS: Ht 154.9 cm; Wt 92.5 kg
[~2023-01-02 20:59] MED LIST changes: +CICL8KIT2 EX; +DICY-61 PO; -DICY10CA13 PO; +LAMO25TA57 PO; +PENI500T PO
[2023-01-03 00:05] LABS: BASO # 0.1 10^3/uL (0.0-0.2); BASO % 0.9 % (0.0-1.0); EOS # 0.3 10^3/uL (0.0-0.5); EOS % 3.5 % (0.0-3.0); HEMATOCRIT 43.8 % (36.0-47.0); HEMOGLOBIN 14.7 g/dl (12.0-15.5); LYMPH # 3.2 10^3/uL (1.5-5.0); LYMPH % 39.4 % (24.0-44.0); MEAN CORPUSCULAR HEMOGLOBIN 30.5 pg (27.0-33.0); MEAN CORPUSCULAR HGB CONC 33.6 g/dl (32.0-36.5); MEAN CORPUSCULAR VOLUME 90.9 fl (80.0-96.0); MONO % 11.6 % (2.0-8.0); NEUTROPHILS # 3.6 10^3/uL (1.5-8.5); NEUTROPHILS % 44.4 % (36.0-66.0); PLATELET COUNT, AUTOMATED 306 10^3/uL (150-450); RED BLOOD COUNT 4.82 10^6/uL (4.00-5.40); WHITE BLOOD COUNT 8.2 10^3/uL (4.0-10.0)
[2023-01-03 00:27] LABS: INR 0.93; PROTHROMBIN TIME 12.7 SECONDS (12.5-14.5)
[2023-01-03 00:29] LABS: LIPASE 28 U/L (12-53)
[2023-01-03 00:31] LABS: ALBUMIN 3.7 G/DL (3.2-5.2); ALKALINE PHOSPHATASE 140 U/L (46-116); ALT/SGPT 38 U/L (7.0-40); AST/SGOT 46 U/L (<34); BILIRUBIN,DIRECT 0.3 MG/DL (<0.4); BLOOD UREA NITROGEN 14 MG/DL (9-23); CALCIUM LEVEL 9.7 MG/DL (8.5-10.1); CARBON DIOXIDE LEVEL 28 MMOL/L (20-31); CHLORIDE LEVEL 101 MMOL/L (98-107); CK-MB VALUE MASS 4.5 NG/ML (<3.6); CREATININE FOR GFR 0.67 MG/DL (0.55-1.30); GLOMERULAR FILTRATION RATE > 60.0 (>51); GLUCOSE, FASTING 97 MG/DL (60-100); POTASSIUM SERUM 3.2 MMOL/L (3.5-5.1); SODIUM LEVEL 138 MMOL/L (136-145); TOTAL PROTEIN 7.1 G/DL (5.7-8.2)
[2023-01-03 00:40] LABS: CPK CREATINE PHOSPHOKINASE 185 U/L (34-145); MB/CK RELATIVE INDEX 2.43 (< OR =4)
[2023-01-03 03:22] LABS: MB/CK RELATIVE INDEX 2.97 (< OR =4)
[2023-01-03] MEDS ORDERED: POTASSIUM CHLORIDE 10MEQ SR TABLET PO ONE ×2 (03:55→09:00)
[2023-01-03] MEDS ORDERED: ISOVUE-370 76% 100ML VIAL As Ordered ONE (07:40)
[2023-01-03 09:12] VITALS: BP 111/50; TEMP 98; O2SAT 98
== END 2023-01-03 09:44 | disposition home or self-care (01) ==
LOC: M ED 20:59
DX: R07.9 Chest pain, unspecified (principal); R91.1 Solitary pulmonary nodule; E87.6 Hypokalemia; E78.5 Hyperlipidemia, unspecified; J45.909 Unspecified asthma, uncomplicated; K21.9 Gastro-esophageal reflux disease without esophagitis; F32.A Depression, unspecified; F41.9 Anxiety disorder, unspecified; Z88.8 Allergy status to other drugs, medicaments and biological substances; Z79.51 Long term (current) use of inhaled steroids; Z79.899 Other long term (current) drug therapy
CPT/HCPCS: 36415; 71275; 80048; 80076; 82550; 82553; 83690; 85025; 85610; 93005; 99284; Q9967

== ENCOUNTER → 2023-02-08 | Outpatient (CLI) | payer OTHER | LOC: M RAD 15:14 | PROVIDERS: ATTEND Family Medicine | DX: R07.89 Other chest pain (principal) ==

== ENCOUNTER → 2023-02-14 | Outpatient (CLI) | payer OTHER | LOC: M RAD 12:21 | PROVIDERS: ATTEND Family Medicine | DX: M25.469 Effusion, unspecified knee (principal) ==

== ENCOUNTER → 2023-03-19 | Outpatient (CLI) | payer OTHER | LOC: M RAD 12:40 | PROVIDERS: ATTEND Orthopaedic Surgery | DX: M79.89 Other specified soft tissue disorders (principal) ==

== ENCOUNTER → 2023-04-10 | Outpatient (CLI) | payer OTHER | LOC: M PLAIMG 10:54 | PROVIDERS: ATTEND Family Medicine | DX: R91.1 Solitary pulmonary nodule (principal) ==

== ENCOUNTER → 2023-06-21 | Outpatient (REF) | payer OTHER ==
[~2023-06-21] MED LIST changes: +TOPI-21; -TOPI-254
== END ==
LOC: M LAB REF 16:16
PROVIDERS: ATTEND Physician Assistant Medical
DX: B34.9 Viral infection, unspecified (principal)

== ENCOUNTER → 2023-07-02 | Outpatient (REF) | payer OTHER ==
[2023-07-02 18:30] LABS: RSV AMPLIFICATION NEGATIVE (NEGATIVE)
== END ==
LOC: M SFHCCLAY 12:23
PROVIDERS: ATTEND Physician Assistant
DX: R09.81 Nasal congestion (principal)

== ENCOUNTER → 2023-07-25 | Outpatient (REF) | payer OTHER ==
[2023-07-25 17:48] LABS: APPEARANCE, URINE CLEAR (CLEAR); BACTERIA, URINE AUTO NEGATIVE (NEGATIVE); BILIRUBIN, URINE AUTO NEGATIVE (NEGATIVE); BLOOD, URINE BLOOD NEGATIVE (NEGATIVE); COLOR, URINE YELLOW (YELLOW); GLUCOSE, URINE (UA) AUTO NEGATIVE (NEGATIVE); KETONE, URINE AUTO NEGATIVE (NEGATIVE); LEUKOCYTE ESTERASE, URINE AUTO NEGATIVE (NEGATIVE); NITRITE, URINE AUTO NEGATIVE (NEGATIVE); PROTEIN, URINE AUTO NEGATIVE (NEGATIVE); RBC, URINE AUTO 0 /HPF (0-3); SPECIFIC GRAVITY URINE AUTO 1.009 (1.002-1.035); SQUAMOUS EPITHELIAL CELL UR AU 1 /HPF (0-6); UROBILINOGEN, URINE AUTO 0.2 mg/dL (0.0-2.0); WBC, URINE AUTO 0 /HPF (0-3)
== END ==
LOC: M SMT 17:26
PROVIDERS: ATTEND Specialist
DX: N30.90 Cystitis, unspecified without hematuria (principal)

== ENCOUNTER → 2023-07-26 | Outpatient (REF) | payer OTHER | LOC: M LABSMT 13:24 | PROVIDERS: ATTEND Specialist | DX: N30.90 Cystitis, unspecified without hematuria (principal); N39.46 Mixed incontinence; Z53.9 Procedure and treatment not carried out, unspecified reason ==

== ENCOUNTER 2023-10-15 15:05 | Emergency (ER) | payer OTHER ==
[~2023-10-15] VITALS: Ht 154.9 cm; Wt 100.9 kg
[2023-10-15 16:09] LABS: BASO # 0.1 10^3/uL (0.0-0.2); BASO % 0.9 % (0.0-1.0); EOS # 0.2 10^3/uL (0.0-0.5); EOS % 4.1 % (0.0-3.0); HEMOGLOBIN 15.3 g/dl (12.0-15.5); LYMPH # 2.9 10^3/uL (1.5-5.0); LYMPH % 49.3 % (24.0-44.0); MEAN CORPUSCULAR HEMOGLOBIN 31.4 pg (27.0-33.0); MEAN CORPUSCULAR HGB CONC 33.3 g/dl (32.0-36.5); MEAN CORPUSCULAR VOLUME 94.3 fl (80.0-96.0); MONO # 0.6 10^3/uL (0.0-0.8); NEUTROPHILS % 35.2 % (36.0-66.0); PLATELET COUNT, AUTOMATED 318 10^3/uL (150-450); RED BLOOD COUNT 4.88 10^6/uL (4.00-5.40); WHITE BLOOD COUNT 5.8 10^3/uL (4.0-10.0)
[2023-10-15 16:14] LABS: CK-MB VALUE MASS 3.6 NG/ML (<3.6)
[2023-10-15 16:16] LABS: BLOOD UREA NITROGEN 12 MG/DL (9-23); CALCIUM LEVEL 10.2 MG/DL (8.5-10.1); CARBON DIOXIDE LEVEL 30 MMOL/L (20-31); CHLORIDE LEVEL 107 MMOL/L (98-107); CREATININE FOR GFR 0.63 MG/DL (0.55-1.30); GLOMERULAR FILTRATION RATE > 60.0 (>51); GLUCOSE, FASTING 100 MG/DL (60-100); SODIUM LEVEL 143 MMOL/L (136-145)
[2023-10-15 16:18] LABS: CPK CREATINE PHOSPHOKINASE 158 U/L (34-145); MB/CK RELATIVE INDEX 2.27 (< OR =4)
[2023-10-15] MEDS: NS 1,000 ML IV ONE (20:39)
[2023-10-15] MEDS: ONDANSETRON 4MG 2ML VIAL IV ONE (20:39)
[2023-10-15 22:45] VITALS: BP 142/60; TEMP 97.5; O2SAT 98
== END 2023-10-15 22:47 | disposition home or self-care (01) ==
LOC: M ED 15:05
DX: U07.1 COVID-19 (principal); J45.909 Unspecified asthma, uncomplicated; J44.9 Chronic obstructive pulmonary disease, unspecified; F41.9 Anxiety disorder, unspecified; F32.A Depression, unspecified; E78.5 Hyperlipidemia, unspecified; Z87.820 Personal history of traumatic brain injury; Z87.891 Personal history of nicotine dependence; Z79.899 Other long term (current) drug therapy; Z88.8 Allergy status to other drugs, medicaments and biological substances
CPT/HCPCS: 80048; 82550; 82553; 85025; 93005; 96361; 96374; 99284; J2405

== ENCOUNTER → 2024-02-06 | Outpatient (REF) | payer OTHER ==
[2024-02-06 18:10] LABS: HEMATOCRIT 46.8 % (36.0-47.0); HEMOGLOBIN 15.4 g/dl (12.0-15.5); MEAN CORPUSCULAR HEMOGLOBIN 31.2 pg (27.0-33.0); MEAN CORPUSCULAR HGB CONC 32.9 g/dl (32.0-36.5); MEAN CORPUSCULAR VOLUME 94.7 fl (80.0-96.0); PLATELET COUNT, AUTOMATED 273 10^3/uL (150-450); RED BLOOD COUNT 4.94 10^6/uL (4.00-5.40); WHITE BLOOD COUNT 6.7 10^3/uL (4.0-10.0)
[2024-02-06 18:17] LABS: HEMOGLOBIN A1c 5.6 % (4.0-6.0)
[2024-02-06 18:42] LABS: ALBUMIN 4.1 G/DL (3.2-5.2); ALKALINE PHOSPHATASE 99 U/L (46-116); ALT/SGPT 27 U/L (7.0-40); AST/SGOT 33 U/L (<34); BILIRUBIN,TOTAL 0.9 MG/DL (0.3-1.2); BLOOD UREA NITROGEN 10 MG/DL (9-23); CALCIUM LEVEL 10.3 MG/DL (8.5-10.1); CARBON DIOXIDE LEVEL 28 MMOL/L (20-31); CHLORIDE LEVEL 108 MMOL/L (98-107); CHOLESTEROL LEVEL 237 MG/DL (<200); CREATININE FOR GFR 0.73 MG/DL (0.55-1.30); GLOMERULAR FILTRATION RATE > 60.0 (>51); GLUCOSE, FASTING 106 MG/DL (60-100); HDL CHOLESTEROL 44.7 MG/DL (>40); LDL CHOLESTEROL 149.3 MG/DL (<100); NON-HDL-C 192.3 MG/DL; POTASSIUM SERUM 3.9 MMOL/L (3.5-5.1); SODIUM LEVEL 143 MMOL/L (136-145); TOTAL PROTEIN 7.3 G/DL (5.7-8.2); TRIGLYCERIDES LEVEL 215 MG/DL (<150)
== END ==
LOC: M SFHCCLAY 12:20
PROVIDERS: ATTEND Family Medicine
DX: R73.01 Impaired fasting glucose (principal); E78.5 Hyperlipidemia, unspecified

== ENCOUNTER 2024-03-04 14:44 | Emergency (ER) | payer OTHER ==
[~2024-03-04] VITALS: Ht 154.9 cm; Wt 99.5 kg
[2024-03-04] MEDS: KETOROLAC 30 MG/ML 1ML VIAL IM ONE (17:51)
[2024-03-04 18:35] VITALS: BP 130/80; TEMP 98.3; O2SAT 100
[2024-03-04 18:36] LABS: RSV AMPLIFICATION NEGATIVE (NEGATIVE)
[2024-03-04] MEDS ORDERED: NAPR-885 PO (21:20)
[2024-03-04] MEDS ORDERED: METH-1165 PO (21:20)
== END 2024-03-04 21:36 | disposition home or self-care (01) ==
LOC: M ED 14:44
DX: M16.11 Unilateral primary osteoarthritis, right hip (principal); M17.11 Unilateral primary osteoarthritis, right knee; S83.91XA Sprain of unspecified site of right knee, initial encounter; W01.0XXA Fall on same level from slipping, tripping and stumbling without subsequent striking against object, initial encounter; Y92.9 Unspecified place or not applicable; Y93.9 Activity, unspecified; Y99.9 Unspecified external cause status; J44.9 Chronic obstructive pulmonary disease, unspecified; K21.9 Gastro-esophageal reflux disease without esophagitis; J45.909 Unspecified asthma, uncomplicated; Z87.820 Personal history of traumatic brain injury; Z79.899 Other long term (current) drug therapy; Z88.8 Allergy status to other drugs, medicaments and biological substances
CPT/HCPCS: 73502; 73552; 73564; 87631; 96372; 99284; J1885

== ENCOUNTER → 2024-03-10 | Outpatient (CLI) | payer OTHER ==
[~2024-03-10] MED LIST changes: +METH-1165 PO; +NAPR-885 PO
== END ==
LOC: M RAD 13:48
PROVIDERS: ATTEND Family Medicine
DX: R19.4 Change in bowel habit (principal); Z53.8 Procedure and treatment not carried out for other reasons

== ENCOUNTER 2024-03-14 23:20 | Emergency (ER) | payer OTHER ==
[~2024-03-14] VITALS: Ht 154.9 cm; Wt 101.6 kg
[2024-03-15 00:50] LABS: VENOUS BASE EXCESS 0.4 (-2.0-2.0); VENOUS O2 SATURATION 57.6 % (60.0-80.0); VENOUS PARTIAL PRESSURE CO2 50.4 mmHg (38.0-50.0); VENOUS PARTIAL PRESSURE O2 28.5 mmHg (30.0-50.0); VENOUS PH 7.346 UNITS (7.330-7.430); VENOUS STANDARD HCO3 23.8 MMOL/L; VENOUS TOTAL CO2 28.5 MMOL/L (24.0-28.0)
[2024-03-15 00:55] LABS: BASO # 0.1 10^3/uL (0.0-0.2); BASO % 0.6 % (0.0-1.0); EOS # 0.3 10^3/uL (0.0-0.5); EOS % 3.7 % (0.0-3.0); HEMATOCRIT 42.5 % (36.0-47.0); HEMOGLOBIN 14.5 g/dl (12.0-15.5); MEAN CORPUSCULAR HEMOGLOBIN 31.5 pg (27.0-33.0); MEAN CORPUSCULAR HGB CONC 34.1 g/dl (32.0-36.5); MEAN CORPUSCULAR VOLUME 92.4 fl (80.0-96.0); MONO # 0.9 10^3/uL (0.0-0.8); MONO % 10.8 % (2.0-8.0); NEUTROPHILS # 5.2 10^3/uL (1.5-8.5); NEUTROPHILS % 61.7 % (36.0-66.0); PLATELET COUNT, AUTOMATED 273 10^3/uL (150-450); WHITE BLOOD COUNT 8.5 10^3/uL (4.0-10.0)
[2024-03-15] MEDS: LEVALBUTEROL 1.25MG 0.5ML CONCENTRATE NEB NEB ONE ×2 (00:59)
[2024-03-15 01:10] LABS: INR 0.98; PARTIAL THROMBOPLASTIN TIME 26.2 SECONDS (24.8-34.2); PROTHROMBIN TIME 12.7 SECONDS (12.5-14.5)
[2024-03-15] MEDS: ACETAMINOPHEN 325 MG TAB PO ONE (01:13)
[2024-03-15 01:18] LABS: CK-MB VALUE MASS < 1.0 NG/ML (<3.6)
[2024-03-15 01:21] LABS: ALBUMIN 3.8 G/DL (3.2-5.2); ALKALINE PHOSPHATASE 104 U/L (46-116); ALT/SGPT 18 U/L (7.0-40); AST/SGOT 24 U/L (<34); BILIRUBIN,DIRECT 0.2 MG/DL (<0.4); BILIRUBIN,TOTAL 0.7 MG/DL (0.3-1.2); BLOOD UREA NITROGEN 7 MG/DL (9-23); CALCIUM LEVEL 9.6 MG/DL (8.5-10.1); CARBON DIOXIDE LEVEL 27 MMOL/L (20-31); CHLORIDE LEVEL 108 MMOL/L (98-107); CREATININE FOR GFR 0.76 MG/DL (0.55-1.30); GLOMERULAR FILTRATION RATE > 60.0 (>51); GLUCOSE, FASTING 121 MG/DL (60-100); POTASSIUM SERUM 3.9 MMOL/L (3.5-5.1); SODIUM LEVEL 141 MMOL/L (136-145); TOTAL PROTEIN 7.1 G/DL (5.7-8.2)
[2024-03-15] MEDS ORDERED: ISOVUE-370 76% 100ML VIAL As Ordered ONE (01:24)
[2024-03-15 01:27] LABS: PROCALCITONIN 0.12 ng/ml
[2024-03-15 01:29] LABS: CPK CREATINE PHOSPHOKINASE 90 U/L (34-145); MB/CK RELATIVE INDEX 1.11 (< OR =4)
[2024-03-15] MEDS ORDERED: ALBU2.5V10 NEB (03:49)
[2024-03-15] MEDS ORDERED: BENZ200C70 PO (03:49)
[2024-03-15] MEDS ORDERED: LEVO1TAB40 PO (03:55)
[2024-03-15] MEDS: BENZONATATE 100MG CAPSULE PO ONE (04:05)
[2024-03-15] MEDS: LevoFLOXacin IV 750 MG in IV 1 EA IV ONE (04:06)
[2024-03-15] MEDS: KETOROLAC 30 MG/ML 1ML VIAL IV ONE (04:06)
[2024-03-15] MEDS: methylPREDNISolone 125MG 2ML VIAL IV ONE (04:06)
[2024-03-15 05:31] VITALS: BP 113/55; TEMP 96.1; O2SAT 95
== END 2024-03-15 07:00 | disposition home or self-care (01) ==
LOC: M ED 23:20
DX: J18.9 Pneumonia, unspecified organism (principal); J20.9 Acute bronchitis, unspecified; J45.901 Unspecified asthma with (acute) exacerbation; K21.9 Gastro-esophageal reflux disease without esophagitis; G43.909 Migraine, unspecified, not intractable, without status migrainosus; M54.9 Dorsalgia, unspecified; Z79.899 Other long term (current) drug therapy; Z88.8 Allergy status to other drugs, medicaments and biological substances
CPT/HCPCS: 71045; 71275; 80048; 80076; 82550; 82553; 82803; 83605; 83880; 84145; 84484; 85025; 85610; 85730; 86140; 87040; 87486; 87581; 87633; 87798; 93005; 93041; 94760; 96374; 96375; 99285; J1885; J1956; J2919; Q9967

== ENCOUNTER 2024-03-23 09:10 | Emergency (ER) | payer OTHER ==
[~2024-03-23] VITALS: Ht 154.9 cm; Wt 101.4 kg
[~2024-03-23 09:10] MED LIST changes: +ALBU2.5V10 NEB; +LEVO1TAB40 PO
[2024-03-23 11:51] LABS: BASO # 0.1 10^3/uL (0.0-0.2); BASO % 0.6 % (0.0-1.0); EOS # 0.5 10^3/uL (0.0-0.5); EOS % 6.3 % (0.0-3.0); HEMATOCRIT 45.2 % (36.0-47.0); HEMOGLOBIN 15.2 g/dl (12.0-15.5); LYMPH # 2.6 10^3/uL (1.5-5.0); MEAN CORPUSCULAR HEMOGLOBIN 31.7 pg (27.0-33.0); MEAN CORPUSCULAR HGB CONC 33.6 g/dl (32.0-36.5); MEAN CORPUSCULAR VOLUME 94.4 fl (80.0-96.0); MONO # 0.6 10^3/uL (0.0-0.8); MONO % 7.4 % (2.0-8.0); NEUTROPHILS # 4.1 10^3/uL (1.5-8.5); NEUTROPHILS % 51.9 % (36.0-66.0); PLATELET COUNT, AUTOMATED 341 10^3/uL (150-450); RED BLOOD COUNT 4.79 10^6/uL (4.00-5.40)
[2024-03-23 12:04] LABS: INR 0.98; PROTHROMBIN TIME 12.7 SECONDS (12.5-14.5)
[2024-03-23 12:25] LABS: CPK CREATINE PHOSPHOKINASE 201 U/L (34-145)
[2024-03-23 12:26] LABS: ALBUMIN 3.7 G/DL (3.2-5.2); ALKALINE PHOSPHATASE 90 U/L (46-116); ALT/SGPT 19 U/L (7.0-40); AST/SGOT 21 U/L (<34); BILIRUBIN,DIRECT 0.2 MG/DL (<0.4); BILIRUBIN,TOTAL 0.7 MG/DL (0.3-1.2); BLOOD UREA NITROGEN 7 MG/DL (9-23); CALCIUM LEVEL 9.3 MG/DL (8.5-10.1); CARBON DIOXIDE LEVEL 27 MMOL/L (20-31); CHLORIDE LEVEL 109 MMOL/L (98-107); CK-MB VALUE MASS 1.4 NG/ML (<3.6); CREATININE FOR GFR 0.66 MG/DL (0.55-1.30); GLOMERULAR FILTRATION RATE > 60.0 (>51); GLUCOSE, FASTING 90 MG/DL (60-100); MB/CK RELATIVE INDEX 0.69 (< OR =4); POTASSIUM SERUM 4.1 MMOL/L (3.5-5.1); SODIUM LEVEL 142 MMOL/L (136-145); THYROXINE (T4) 9.6 UG/DL (4.5-10.9); TOTAL PROTEIN 7.1 G/DL (5.7-8.2)
[2024-03-23 12:27] LABS: THYROID STIMULATING HORMONE 2.721 uIU/ML (0.55-4.78)
[2024-03-23] MEDS: predniSONE 20 MG TAB PO ONE (12:31)
[2024-03-23] MEDS: ALBUTEROL SULFATE 2.5MG/0.5ML INH NEB SOLN INH SCH (12:33)
[2024-03-23] MEDS ORDERED: GLYCOPYRROLATE INJ 0.2 MG/ML 2 ML VIAL As Ordered ONE (13:15)
[2024-03-23] MEDS: FORMOTEROL FUMARATE 20 MCG/2 ML INHALATION SOLUTION (PERFOROMIST) INH SCH (13:57)
[2024-03-23] MEDS ORDERED: PRED20TA PO (14:43)
[2024-03-23] MEDS ORDERED: MONT-5 PO (14:43)
[2024-03-23] MEDS ORDERED: FLON1SPR NARES (14:43)
[2024-03-23 15:05] VITALS: BP 117/71; TEMP 97.6; O2SAT 96
== END 2024-03-23 15:17 | disposition home or self-care (01) ==
LOC: M ED 09:10
DX: J45.901 Unspecified asthma with (acute) exacerbation (principal); J44.9 Chronic obstructive pulmonary disease, unspecified; G47.30 Sleep apnea, unspecified; Z79.899 Other long term (current) drug therapy; Z88.8 Allergy status to other drugs, medicaments and biological substances
CPT/HCPCS: 71046; 80048; 80076; 82550; 82553; 83605; 83880; 84436; 84443; 84484; 85025; 85610; 87040; 87486; 87581; 87633; 87798; 93005; 94640; 99284; J7512; J7606

== ENCOUNTER → 2024-03-26 | Outpatient (CLI) | payer OTHER ==
[~2024-03-26] MED LIST changes: +FLON1SPR NARES; +GASTROGRAFIN SOLUTION 30ML As Ordered ONE; +ISOVUE-370 76% 100ML VIAL As Ordered ONE; +MONT-5 PO; +PRED20TA PO
== END ==
LOC: M RAD 13:14
PROVIDERS: ATTEND Family Medicine
DX: R19.4 Change in bowel habit (principal); K76.0 Fatty (change of) liver, not elsewhere classified; Z90.49 Acquired absence of other specified parts of digestive tract; R93.3 Abnormal findings on diagnostic imaging of other parts of digestive tract
CPT/HCPCS: 74177; Q9963; Q9967

== ENCOUNTER → 2024-04-20 | Outpatient (REF) | payer OTHER ==
[~2024-04-20] MED LIST changes: -GASTROGRAFIN SOLUTION 30ML As Ordered ONE; -ISOVUE-370 76% 100ML VIAL As Ordered ONE
== END ==
LOC: M LAB REF 16:16
PROVIDERS: ATTEND Physician Assistant Medical
DX: B34.9 Viral infection, unspecified (principal)

== ENCOUNTER → 2024-05-14 | Outpatient (CLI) | payer OTHER ==
[~2024-05-14] MED LIST changes: -CELE1CAP88 PO; +CELE400C PO
== END ==
LOC: M CLY 12:15
PROVIDERS: ATTEND Family Medicine
DX: M25.512 Pain in left shoulder (principal)

== ENCOUNTER → 2024-05-14 | Outpatient (CLI) | payer OTHER | LOC: M CLY 11:53 | PROVIDERS: ATTEND Family Medicine | DX: Z53.9 Procedure and treatment not carried out, unspecified reason (principal) ==

== ENCOUNTER → 2024-05-14 | Outpatient (REF) | payer OTHER ==
[2024-05-14 16:48] LABS: BASO % 0.7 % (0.0-1.0); EOS # 0.4 10^3/uL (0.0-0.5); EOS % 6.4 % (0.0-3.0); HEMATOCRIT 47.1 % (36.0-47.0); HEMOGLOBIN 15.5 g/dl (12.0-15.5); LYMPH # 2.2 10^3/uL (1.5-5.0); LYMPH % 39.7 % (24.0-44.0); MEAN CORPUSCULAR HEMOGLOBIN 31.4 pg (27.0-33.0); MEAN CORPUSCULAR HGB CONC 32.9 g/dl (32.0-36.5); MEAN CORPUSCULAR VOLUME 95.5 fl (80.0-96.0); MONO # 0.5 10^3/uL (0.0-0.8); MONO % 8.8 % (2.0-8.0); NEUTROPHILS # 2.4 10^3/uL (1.5-8.5); NEUTROPHILS % 44.2 % (36.0-66.0); PLATELET COUNT, AUTOMATED 192 10^3/uL (150-450); RED BLOOD COUNT 4.93 10^6/uL (4.00-5.40); WHITE BLOOD COUNT 5.4 10^3/uL (4.0-10.0)
[2024-05-14 17:06] LABS: HEMOGLOBIN A1c 5.6 % (4.0-6.0)
[2024-05-14 17:15] LABS: ALBUMIN 3.4 G/DL (3.2-5.2); ALKALINE PHOSPHATASE 139 U/L (35-104); ALT/SGPT 55 U/L (7.0-40); AST/SGOT 42 U/L (<34); BILIRUBIN,TOTAL 0.8 MG/DL (0.3-1.2); BLOOD UREA NITROGEN 14 MG/DL (9-23); CALCIUM LEVEL 10.1 MG/DL (8.5-10.1); CARBON DIOXIDE LEVEL 27 MMOL/L (20-31); CHLORIDE LEVEL 107 MMOL/L (98-107); CREATININE FOR GFR 0.61 MG/DL (0.55-1.30); GLOMERULAR FILTRATION RATE > 60.0 (>51); GLUCOSE, FASTING 113 MG/DL (60-100); POTASSIUM SERUM 3.6 MMOL/L (3.5-5.1); SODIUM LEVEL 141 MMOL/L (136-145); TOTAL PROTEIN 6.8 G/DL (5.7-8.2)
[2024-05-18 15:17] LABS: EBV AB TO NUCLEAR ANTIGEN > 600.00 U/mL (<18.00); EBV VIRAL CAPSID AG IGM < 36.00 U/mL (<36.00)
== END ==
LOC: M SFHCCLAY 12:42
PROVIDERS: ATTEND Family Medicine
DX: R50.9 Fever, unspecified (principal); R73.01 Impaired fasting glucose

== ENCOUNTER → 2024-06-05 | Outpatient (CLI) | payer OTHER ==
[~2024-06-05] MED LIST changes: +ALBU8.5H INH; +AZIT-12 PO; +BUDE10.7 INH; +COLE1TAB PO; +HYDR-4517 PO; +IPRA0.00 INH; +LAMO50TA PO; +MIRA50TA2 PO; +MULT-90 PO; +OXYB5TAB14 PO; -TOPI-21; +TOPI-21 PO
== END ==
LOC: M PLAIMG 14:11
PROVIDERS: ATTEND Family Medicine
DX: R91.1 Solitary pulmonary nodule (principal); I25.10 Atherosclerotic heart disease of native coronary artery without angina pectoris; Z90.49 Acquired absence of other specified parts of digestive tract

== ENCOUNTER → 2024-09-03 | Outpatient (CLI) | payer OTHER | LOC: M PLARAD 10:35 | PROVIDERS: ATTEND Ophthalmology | DX: H53.40 Unspecified visual field defects (principal); J32.8 Other chronic sinusitis ==

== ENCOUNTER → 2025-02-15 | Outpatient (CLI) | payer OTHER ==
[~2025-02-15] MED LIST changes: +TOPI-257 PO; -TOPI100T9 PO
== END ==
LOC: M PLAIMG 10:54
PROVIDERS: ATTEND Physician Assistant
DX: R94.31 Abnormal electrocardiogram [ECG] [EKG] (principal)

== ENCOUNTER → 2025-02-26 | Outpatient (CLI) | payer OTHER ==
[~2025-02-26] MED LIST changes: +DULO1CAP5 PO; +FLUT1BLS8; +MECL-86 PO; +REST0.05
== END ==
LOC: M WHC 13:16
PROVIDERS: ATTEND Specialist
DX: Z12.31 Encounter for screening mammogram for malignant neoplasm of breast (principal)

== ENCOUNTER → 2025-02-26 | Outpatient (REF) | payer OTHER ==
[~2025-02-26] MED LIST changes: -DULO1CAP5 PO
== END ==
LOC: M SFHCWAGY 15:06
PROVIDERS: ATTEND Specialist
DX: R35.0 Frequency of micturition (principal)

== ENCOUNTER → 2025-03-04 | Outpatient (CLI) | payer OTHER | LOC: M CLY 11:15 | PROVIDERS: ATTEND Family Medicine | DX: J44.9 Chronic obstructive pulmonary disease, unspecified (principal) ==

== ENCOUNTER → 2025-03-04 | Outpatient (CLI) | payer OTHER | LOC: M CLY 11:29 | PROVIDERS: ATTEND Family Medicine | DX: Z53.9 Procedure and treatment not carried out, unspecified reason (principal) ==